=== PATIENT | female | born 1990 | race Caucasian/White ===

== ENCOUNTER → 2018-12-29 | Outpatient (CLI) | payer BC, SELFPAY ==
[2018-12-16 10:05] VITALS: BMI 26.9
[2018-12-29 18:22] LABS: Estradiol 34.1 pg/mL; Prolactin 12.9 ng/mL; Thyroid Stim Hormone (TSH) 1.28 uIU/mL (0.358-3.74)
== END | disposition home or self-care (01) ==
LOC: LAB 16:34
PROVIDERS: Referring Provider Nurse Practitioner Women's Health; Visit Provider Nurse Practitioner Women's Health
DX: N92.6 Irregular menstruation, unspecified (principal)
CPT/HCPCS: 36415; 82670; 83001; 84146; 84443

== ENCOUNTER → 2019-01-16 | Outpatient (CLI) | payer BC, SELFPAY ==
[2018-12-16 10:05] VITALS: BMI 26.9
[2019-01-17 08:57] LABS: Progesterone Level 9.25 ng/mL (See Comment)
== END | disposition home or self-care (01) ==
LOC: LAB 08:58
PROVIDERS: Visit Provider Nurse Practitioner Women's Health
DX: N92.6 Irregular menstruation, unspecified (principal)
CPT/HCPCS: 36415; 84144

== ENCOUNTER → 2019-03-03 10:08 | Outpatient (CLI) | payer BC, SELFPAY ==
[2018-12-16 10:05] VITALS: BMI 26.9
--- NOTE | 2019-03-03 10:15 | RAD_ITS ---
STUDY: HYSTEROSALPINGOGRAM. REASON FOR EXAM: Female, 28 years old. Infertility. FLUOROSCOPY TIME (if supplied): (0:27) minutes/seconds. 3 images were obtained. TECHNIQUE: Hysterosalpingogram was performed by the rear load truck driver. Imaging was provided. COMPARISON: None. FINDINGS: The uterus is unremarkable. Both fallopian tubes are patent with the spill bilaterally. RAD/Salpingogram IMPRESSION: Unremarkable hysterosalpingogram. Electronically Signed: Al Ortez, at 13:08 EDT , Service support ,
--- NOTE | 2019-03-04 04:57 | OP.PCM_ITS ---
Problem List (1) Infertility Status: Acute Report of Operation Date of Procedure: 03/04/19 Description of Procedure: Preop diagnosis: Infertility Postop diagnosis: Same plus bilateral tubal patency Procedure: Hysterosalpingogram Surgeon: La Moore Implantable devices: None Complications: None Findings: Bilateral tubal patency and normal uterine cavity Operative details: Patient was taken to the x-ray room and was placed on the x- ray table and was in the dorsal lithotomy position. Speculum was placed in the vagina and the cervix prepped with Betadine and after using a tenaculum and uterine sound and dilator, the uterus was noted to be shifted to the left, and the HSG catheter was then easily introduced into the uterus and speculum removed. Radiologist was brought in and while pushing radiopaque dye into the uterus via the HSG catheter the radiologist took multiple images and views and confirmed bilateral tubal patency seen. No gross uterine filling defects or abnormalities were seen. All instruments removed from the vagina and the uterus without complication. Patient tolerated the procedure well. Multi Select Codes - Urinary/Genital Urinary/Genital CPT Codes: Other Procedure See Report - [id number] [facility]
== END ==
PROVIDERS: Referring Provider Obstetrics & Gynecology; Visit Provider Obstetrics & Gynecology
DX: N97.9 Female infertility, unspecified (principal)
CPT/HCPCS: 58340; 74740; Q9967

== ENCOUNTER → 2019-08-17 16:27 | Outpatient (CLI) | payer BC, SELFPAY ==
[2018-12-16 10:05] VITALS: BMI 26.9
[2019-08-17 17:17] LABS: hCG Titer Quant., Serum 1395 mIU/mL (1-3)
== END ==
PROVIDERS: Referring Provider Obstetrics & Gynecology; Visit Provider Obstetrics & Gynecology
DX: O20.0 Threatened abortion (principal); Z3A.00 Weeks of gestation of pregnancy not specified
CPT/HCPCS: 36415; 84702

== ENCOUNTER → 2019-08-19 17:13 | Outpatient (CLI) | payer BC, SELFPAY ==
[2018-12-16 10:05] VITALS: BMI 26.9
[2019-08-19 18:55] LABS: hCG Titer Quant., Serum 2817 mIU/mL (1-3)
== END ==
PROVIDERS: Referring Provider Obstetrics & Gynecology; Visit Provider Obstetrics & Gynecology
DX: O20.0 Threatened abortion (principal)
CPT/HCPCS: 36415; 84702; 86850; 86900; 86901

== ENCOUNTER → 2019-08-30 | Outpatient (CLI) | payer BC, SELFPAY ==
[2018-12-16 10:05] VITALS: BMI 26.9
--- NOTE | 2019-08-30 16:21 | US_ITS ---
STUDY: FIRST TRIMESTER OBSTETRICAL ULTRASOUND REASON FOR EXAM: Female, 29 years old VIABILITY LMP: July 15, 2019. TECHNIQUE: Transvaginal TECHNICAL QUALITY: Adequate. PRIOR ULTRASOUND: None. FINDINGS: There is visualization of a single gestational sac in a normal intrauterine position. The mean sac diameter (MSD) measures 2.37 cm, indicating an estimated gestational age (EGA) of 7 weeks, 3 days. The gestational sac shape is within normal limits. There is a visualized yolk sac. The yolk sac measures 3.1 mm. The placenta is non-visualized. There is visualization of a live embryo. The crown-rump length (CRL) measures 7.6 cm, indicating an estimated gestational age (EGA) of 6 weeks, 5 days. There is demonstrated cardiac activity with a heart rate of bpm. The estimated gestation age (EGA) by LMP is 6 weeks, 4 days. The estimated date of delivery (RAIZA) by LMP is April 20, 2020. The estimated gestation age (EGA) by US is 7 weeks, 1 days. The estimated date of delivery (RAIZA) by US is April 16, 2020. The uterus measures 8.4 cm x 7.1 cm x 5.5 cm.. There is a 2.3 cm x 2 cm x 1.7 cm fundal fibroid. The cervix is closed. The right ovary measures 2.4 cm x 2.1 cm x 1.6 cm. There is no right ovarian cyst. There is no visualized right adnexal mass or complex lesion. The left ovary measures 3.4 cm x 2.9 cm x 2.4 cm.. There is a 1.7 cm x 1.7 cm x 1.4 cm follicle. There is no visualized left adnexal mass or complex lesion. There is no fluid in the cul de sac. US/Init OB < 14Wks US IMPRESSION: Single live intrauterine gestation with a mean gestational age of 7 weeks and 1 day. Electronically Signed: Al Ortez, at 16:25 EST , Service support ,
== END | disposition home or self-care (01) ==
PROVIDERS: Referring Provider Obstetrics & Gynecology; Visit Provider Obstetrics & Gynecology
DX: Z34.90 Encounter for supervision of normal pregnancy, unspecified, unspecified trimester (principal)
CPT/HCPCS: 76801

== ENCOUNTER → 2019-09-15 | Outpatient (CLI) | payer BC, SELFPAY ==
[2019-09-15 17:05] VITALS: BMI 26.9
[2019-09-15 18:21] LABS: Amphetamine Urine VISTA NEGATIVE (<1000 ng/mL); Barbiturate Urine VISTA NEGATIVE (< 200 ng/mL); Benzodiazepine Urine VISTA NEGATIVE (< 200 ng/mL); Cocaine Urine VISTA NEGATIVE (< 300 ng/mL); Ecstacy Urine VISTA NEGATIVE (< 500 ng/mL); Methadone Urine VISTA NEGATIVE (< 300 ng/mL); PCP Urine VISTA NEGATIVE (< 25 ng/mL); THC Urine VISTA NEGATIVE (< 50 ng/mL); Vista UDS pH Range 6
[2019-09-15 21:39] LABS: Chlamydia Trachomatis by PCR Negative (Negative); Neisserai gonorrhoeae by PCR Negative (Negative); Probe Check PASS; Sample Adequacy Control PASS; Specimen Processing Control PASS
== END | disposition home or self-care (01) ==
LOC: LABSPEC 17:26
PROVIDERS: Visit Provider Obstetrics & Gynecology
DX: Z34.90 Encounter for supervision of normal pregnancy, unspecified, unspecified trimester (principal)
CPT/HCPCS: 80307; 87086; 87088; 87491; 87591

== ENCOUNTER → 2019-09-27 | Outpatient (CLI) | payer BC, SELFPAY ==
[2019-09-15 17:05] VITALS: BMI 26.9
[2019-09-27 17:07] LABS: Absolute Lymphocyte Count 2.32 X10^3/uL (0.83-4.51); Absolute Neutrophil Count 5.6 X10^3/uL (2.0-7.7); Basophil# 0.03 X10^3/uL; Basophil% 0.3 % (0-1); Eosinophil# 0.22 X10^3/uL; Eosinophils% 2.4 % (0-5); Hematocrit 37.4 % (37-47); Lymphocyte # 2.32 X10^3/ul (4.0); Lymphocyte % 25.6 % (19-41); Mean Corp Hgb Conc 34.8 g/dL (32-36); Mean Corpuscular Hgb 30.6 pg (27.0-32.0); Mean Platelet Vol. 10.6 fl (6.2-12.0); Monocyte# 0.87 X10^3/uL; Monocyte% 9.6 % (0-10); NRBC Flagged by Analyzer 0 % (0-5); Neutrophil # 5.59 X10^3/uL (2.7-7.7); Neutrophil % 61.7 % (47-70); Platelet Count 229 K/mm3 (150-450); RBC Distribution Width CV 11.7 % (11.6-14.6); RBC Distribution Width SD 37.2 fl (35.1-43.9); Red Blood Count 4.25 M/mm3 (4.2-5.4); White Blood Count 9.1 K/mm3 (4.4-11.0)
[2019-09-28 11:25] LABS: HIV - WCH Non-Reactive (Nonreactive); Hepatitis B Surface Antigen Non-Reactive (Nonreactive); Hepatitis C Antibody Non-Reactive (Nonreactive); Rubella IgG > 500.0 IU/mL
[2019-09-29 00:26] LABS: Rapid Plasmin Reagin (RPR) NONREACTIVE (NONREACTIVE)
[2019-10-04 19:50] LABS: NATERA MAILED SPECIMEN
== END | disposition home or self-care (01) ==
LOC: PAVLAB 16:34
PROVIDERS: Obstetrics & Gynecology; Referring Provider Nurse Practitioner Women's Health; Visit Provider Nurse Practitioner Women's Health
DX: Z34.81 Encounter for supervision of other normal pregnancy, first trimester (principal)
CPT/HCPCS: 36415; 85025; 86592; 86703; 86762; 86803; 86850; 86900; 86901; 87340

== ENCOUNTER → 2020-01-23 | Outpatient (CLI) | payer BC, SELFPAY ==
[2020-01-03 15:56] VITALS: BMI 30.8
[2020-01-24 08:49] LABS: Glucose Challenge Gest 1H 50g 135 mg/dL (70-140)
== END | disposition home or self-care (01) ==
LOC: LAB 15:00
PROVIDERS: Visit Provider Obstetrics & Gynecology
DX: O99.810 Abnormal glucose complicating pregnancy (principal); Z3A.00 Weeks of gestation of pregnancy not specified
CPT/HCPCS: 36415; 82947; 82950

== ENCOUNTER → 2020-01-26 | Outpatient (CLI) | payer BC, SELFPAY ==
[2020-01-23 15:38] VITALS: BMI 30.8
[2020-01-26 10:30] LABS: Absolute Lymphocyte Count 1.55 X10^3/uL (0.83-4.51); Basophil# 0.02 X10^3/uL; Basophil% 0.2 % (0-1); Eosinophils% 2.1 % (0-5); Hematocrit 38.6 % (37-47); Hemoglobin 12.8 g/dL (12.0-15.0); Lymphocyte # 1.55 X10^3/ul (4.0); Lymphocyte % 16.2 % (19-41); Mean Corp Hgb Conc 33.2 g/dL (32-36); Mean Corpuscular Hgb 31.8 pg (27.0-32.0); Mean Platelet Vol. 11.3 fl (6.2-12.0); Monocyte# 0.76 X10^3/uL; NRBC Flagged by Analyzer 0 % (0-5); Neutrophil # 6.97 X10^3/uL (2.7-7.7); Platelet Count 203 K/mm3 (150-450); RBC Distribution Width CV 12.3 % (11.6-14.6); RBC Distribution Width SD 43.1 fl (35.1-43.9); Red Blood Count 4.02 M/mm3 (4.2-5.4); White Blood Count 9.6 K/mm3 (4.4-11.0)
[2020-01-26 12:01] LABS: Glucose GTT-Gestational 1 Hr 134 mg/dL (<190)
[2020-01-26 12:47] LABS: Glucose GTT-Gestational 2 Hr 158 mg/dL (<165)
[2020-01-26 13:33] LABS: Glucose GTT-Gestation. Fasting 87 mg/dL (<105)
[2020-01-26 13:43] LABS: Glucose GTT-Gestational 3 Hr 132 L (<145)
== END | disposition home or self-care (01) ==
LOC: LAB 09:53
PROVIDERS: Nurse Practitioner Women's Health; Referring Provider Obstetrics & Gynecology; Visit Provider Obstetrics & Gynecology
DX: O99.810 Abnormal glucose complicating pregnancy (principal); Z3A.00 Weeks of gestation of pregnancy not specified
CPT/HCPCS: 36415; 82951; 82952; 85025

== ENCOUNTER → 2020-03-22 | Outpatient (CLI) | payer BC, SELFPAY ==
[2020-03-22 16:02] VITALS: BMI 30.8
== END | disposition home or self-care (01) ==
LOC: LABSPEC 16:54
PROVIDERS: Referring Provider Obstetrics & Gynecology; Visit Provider Obstetrics & Gynecology
DX: Z34.90 Encounter for supervision of normal pregnancy, unspecified, unspecified trimester (principal)
CPT/HCPCS: 87081

== ENCOUNTER 2020-04-06 16:58 | Outpatient (CLI) | payer BC, SELFPAY ==
[2020-04-06 16:27] VITALS: BMI 30.8
[2020-04-06 17:08] VITALS: BP 119/80; PULSE 83
[2020-04-06 17:09] VITALS: TEMP 36.2
[2020-04-06 17:20] VITALS: BMI 36.9
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
== END 2020-04-06 17:30 | disposition home or self-care (01) ==
LOC: WPOUT 16:59 → OBT 16:59
PROVIDERS: Referring Provider Obstetrics & Gynecology; Visit Provider Obstetrics & Gynecology
DX: O36.8190 Decreased fetal movements, unspecified trimester, not applicable or unspecified (principal); Z3A.00 Weeks of gestation of pregnancy not specified
CPT/HCPCS: 59025; 59050; 99218; G0378

== ENCOUNTER → 2020-04-06 | Outpatient (CLI) | payer BC, SELFPAY ==
[2020-03-29 16:02] VITALS: BMI 30.8
[2020-04-06 17:17] LABS: Protein, Urine (Random) 15.1 mg/dL (<11.9); Protein:Creat Ratio 160 mg/g CRE (0-200)
[2020-04-06 17:20] VITALS: BMI 36.9
== END | disposition home or self-care (01) ==
LOC: MTDU 17:24
PROVIDERS: Referring Provider Obstetrics & Gynecology; Visit Provider Obstetrics & Gynecology
DX: R03.0 Elevated blood-pressure reading, without diagnosis of hypertension (principal); Z11.59 Encounter for screening for other viral diseases
CPT/HCPCS: 82570; 84156; 87635; C9803; U0003

== ENCOUNTER 2020-04-09 17:15 | Outpatient (CLI) | payer BC, SELFPAY ==
[2020-04-09 15:56] VITALS: BMI 36.9
--- NOTE | 2020-04-09 16:07 | US_ITS ---
STUDY: OBSTETRICAL ULTRASOUND - BIOPHYSICAL PROFILE REASON FOR EXAM: Female, 30 years old well-being. LMP: 07/11/2020 PRIOR ULTRASOUND: 04/09/2020 and 08/30/2019 TECHNIQUE: Transabdominal TECHNICAL QUALITY: Adequate. FINDINGS: There is a single intrauterine fetus. The fetus is in a cephalic presentation. There is demonstrated cardiac activity with a heart rate of 132 bpm. There is a normal amniotic fluid volume. The largest amniotic fluid pocket measures 6.2 cystic cm. The amniotic fluid index (SIOBHNA) is 13.6 cm. The placenta is anterior in location and is not low lying. There are Grade . 2 placental changes. Age by LMP: 38 weeks, 3 days. RAIZA by LMP: 04/20/2020. age by prior US: 39 weeks, 0 days. RAIZA by prior US: 04/16/2020. age by current US: 39 weeks, 4 days. RAIZA by current US: 04/12/2020. Gender: Indeterminant BIOPHYSICAL PROFILE: Breathing Movements (FBM): 0 Gross Body Movements (GBM): 2 Tone (FT): 2 Amniotic Fluid Volume (AFV): 2 TOTAL SCORE: 6 / 8 US/Biophysical Profile IMPRESSION: biophysical profile of 6/8. A preliminary report was sent to the ordering physician by the pipe tester at the completion of the exam. Electronically Signed: Angelo Ramon DO at 18:16 EDT Tel [phone], Service support ,
--- NOTE | 2020-04-09 16:07 | US_ITS ---
STUDY: SECOND AND THIRD TRIMESTER OBSTETRICAL ULTRASOUND REASON FOR EXAM: Female, 30 years old. Growth. LMP: 07/11/2019. TECHNIQUE: Transabdominal TECHNICAL QUALITY: Adequate. PRIOR ULTRASOUND: None. FINDINGS: There is a single intrauterine fetus. The fetus is in a cephalic presentation. There is demonstrated cardiac activity with a heart rate of 133 bpm. There is a normal amniotic fluid volume. The largest amniotic fluid pocket measures 6.26 cm. The amniotic fluid index (SIOBHAN) is 13.6 cm. The placenta is anterior in location and is not low lying. There are Grade 2 placental changes. The cervix is obscured BIOMETRY: BPD: 9.42 cm: 38 weeks, 2 days HC: 34.79 cm: 40 weeks, 2 days AC: 37 cm: 40 weeks, 6 days FL: 7.64 cm: 39 weeks, 0 days CI: 80.97 FL/BPD: 81.06 FL/HC: 21.96 FL/AC: 20.64 HC/AC: 0.94 age by current US: 39 weeks, 4 days. RAIZA by current US: 04/12/2020. Estimated weight: 4004 grams, +/- 601 grams, 84 %. Age by LMP: 39 weeks, 0 days. RAIZA by LMP: 04/16/2020. US/OB Limited With Biometrics IMPRESSION: 1. Live single intrauterine at 39 weeks, 4 days. RAIZA is 04/12/2020. 2. EFW 4004 g. 3. SIOBHAN of 13.6 cm. 4. Anterior grade 2 placenta. 5. Vertex presentation. Electronically Signed: Angelo Ramon DO at 17:33 EDT Tel [phone], Service support ,
[2020-04-09 17:21] VITALS: BP 115/66; PULSE 100; TEMP 36.1; O2SAT 97
[2020-04-09 17:24] VITALS: BP 115/66; PULSE 101
[2020-04-09 17:28] VITALS: BMI 37.0
--- NOTE | 2020-04-10 07:36 | OB.TRI.PN ---
Progress Notes Date of Service: 04/10/20 Progress Note: Patient presents for triage evaluation secondary to decreased movement and 6 out of 8 BPP FHT: 130 Moderate variability reactive no decelerations category I tracing [place]: No regular contractions Assessment and plan: Decreased movement abnormal BPP result now 8 out of 10 resolved reactive NST, reassuring maternal and status patient discharged to home to follow-up in the office Thursday. See problem list details for additional plan information. Multi Select Codes - Urinary/Genital Urinary/Genital CPT Codes: 94423-81 non-stress test Interp
== END 2020-04-09 17:55 | disposition home or self-care (01) ==
LOC: OBT 17:20 → US 17:21 → OBT 17:22
PROVIDERS: Referring Provider Obstetrics & Gynecology; Visit Provider Obstetrics & Gynecology
DX: O36.8190 Decreased fetal movements, unspecified trimester, not applicable or unspecified (principal); Z3A.00 Weeks of gestation of pregnancy not specified
CPT/HCPCS: 59025; 59050; 76816; 76818; 99218; G0378

== ENCOUNTER 2020-04-12 07:25 | Inpatient (IN) | payer BC, SELFPAY ==
[2020-04-12] VITALS (25 sets, daily range): BP systolic 95–130; BP diastolic 57–82; PULSE 68–97; TEMP 36.6–37; O2SAT 81–98; BMI 37.3
[2020-04-12 08:08] LABS: Absolute Lymphocyte Count 1.59 X10^3/uL (0.83-4.51); Absolute Neutrophil Count 6.4 X10^3/uL (2.0-7.7); Basophil# 0.03 X10^3/uL; Basophil% 0.3 % (0-1); Eosinophil# 0.16 X10^3/uL; Eosinophils% 1.8 % (0-5); Hematocrit 38.7 % (37-47); Hemoglobin 13.4 g/dL (12.0-15.0); Lymphocyte # 1.59 X10^3/ul (4.0); Lymphocyte % 17.7 % (19-41); Mean Corp Hgb Conc 34.6 g/dL (32-36); Mean Corpuscular Hgb 31.6 pg (27.0-32.0); Mean Corpuscular Volume 91.3 fL (81-99); Mean Platelet Vol. 11.6 fl (6.2-12.0); Monocyte# 0.78 X10^3/uL; Monocyte% 8.7 % (0-10); NRBC Flagged by Analyzer 0 % (0-5); Neutrophil # 6.37 X10^3/uL (2.7-7.7); Neutrophil % 71.1 % (47-70); Platelet Count 192 K/mm3 (150-450); RBC Distribution Width CV 12.4 % (11.6-14.6); RBC Distribution Width SD 41.1 fl (35.1-43.9); Red Blood Count 4.24 M/mm3 (4.2-5.4)
[2020-04-12] MEDS: miSOPROStol 25 MCG TABLET PO (09:04)
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
[2020-04-12] MEDS: Acetaminophen 325 MG Tablet PO (12:20)
[2020-04-12] MEDS: miSOPROStol 50 MCG TABLET PO ×2 (13:12→19:14)
[2020-04-12] MEDS: fentaNYL 100 MCG/2 ML Ampul IV (21:41)
[2020-04-12] MEDS: 0.9% Saline Lock 10 ML Syringe IV ×2 (21:42→23:08)
[2020-04-12] MEDS: Ondansetron 4 MG/2 ML Vial IV (23:08)
[2020-04-13] VITALS (41 sets, daily range): BP systolic 111–141; BP diastolic 58–76; PULSE 74–121; TEMP 36.3–37.2; O2SAT 92–99
[2020-04-13] MEDS: miSOPROStol 50 MCG TABLET PO ×2 (01:46→07:31)
[2020-04-13] MEDS: 0.9% Normal Saline Single 100 ML IV.SOLN. IY (06:33)
[2020-04-13] MEDS: 0.9% Saline Lock 10 ML Syringe IV (09:57)
[2020-04-13] MEDS: Ondansetron 4 MG/2 ML Vial IV (09:57)
[2020-04-13] MEDS: Lactated Ringers 1,000 ML 50 ML IV (20:15)
[2020-04-13] MEDS: Lactated Ringers 500 ML 999 ML IV (20:42)
[2020-04-13] MEDS: Mag Hydrox/Al Hydrox/Simeth 30 ML UDC PO (20:51)
[2020-04-13] MEDS: fentaNYL-bupivacaine (epidural) 100 ML BAG EPIDURAL (21:17)
[2020-04-13] MEDS: Oxytocin 30 units/NS 500 ml 30 UNITS/500 ML IV.SOLN IV (22:04)
[2020-04-14] VITALS (62 sets, daily range): BP systolic 85–113; BP diastolic 48–64; PULSE 57–101; TEMP 36.2–37.4; O2SAT 94–100
[2020-04-14] MEDS: Lactated Ringers 1,000 ML 200 ML IV ×4 (00:38→18:18)
[2020-04-14] MEDS: fentaNYL-bupivacaine (epidural) 100 ML BAG EPIDURAL ×5 (01:24→21:24)
[2020-04-14] MEDS: 0.9% Saline Lock 10 ML Syringe IV ×2 (01:59→19:27)
[2020-04-14] MEDS: Ondansetron 4 MG/2 ML Vial IV ×3 (01:59→18:46)
[2020-04-14] MEDS: Lactated Ringers 500 ML 999 ML IV ×3 (03:27→21:26)
[2020-04-14] MEDS: Acetaminophen 325 MG Tablet PO (11:26)
[2020-04-14] MEDS: Lactated Ringers 1,000 ML 125 ML IV (14:05)
[2020-04-14] MEDS: DiphenhydrAMINE 50 MG/ML Syringe 25 MG IV (14:44)
[2020-04-14] MEDS: Lactated Ringers 500 ML IV (17:46)
[2020-04-14] MEDS: proCHLORPERazine 10 MG/2 ML Vial IV (19:27)
[2020-04-14] MEDS: Amnioinfusion- 0.9% NS 1,000 ML IV.SOLN. 600 ML INTRA-UTER (20:42)
[2020-04-14] MEDS: Lactated Ringers 1,000 ML 100 ML IV (21:57)
[2020-04-15] VITALS (31 sets, daily range): BP systolic 99–116; BP diastolic 35–69; PULSE 61–113; RESP 16–18; TEMP 36.3–38.6; O2SAT 85–100
--- NOTE | 2020-04-15 02:38 | NURSING ---
Aggarwal placed for epidural was removed when kiwi was attempted. New aggarwal put in when maykel called.
[2020-04-15] MEDS: Cefazolin 2 GM in 0.9% Normal Saline 100 ML IV (02:40)
--- NOTE | 2020-04-15 03:25 | RAD_ITS ---
STUDY: X-RAY - ABDOMEN/PELVIS REASON FOR EXAM: Female, 30 years old. SPONGE COUNT POST TODAY AT 0330. TECHNIQUE: Single AP view of the abdomen / pelvis. COMPARISON: None. FINDINGS: Normal visualized lung bases. There is an unremarkable bowel gas pattern. There is no demonstrated free abdominal air. The visualized liver, spleen and kidneys are grossly normal in size and morphology. Normal soft tissue structures. Normal visualized osseous structures. RAD/Abdomen Single View (Portable) IMPRESSION: Normal x-ray examination of the abdomen and pelvis. Electronically Signed: Carolyn Shoemaker, at 4:07 EDT Tel , Service support ,
--- NOTE | 2020-04-15 03:54 | OP.PCM_ITS ---
Delivery Classification: Stat Final RAIZA: 04/16/20 Final RAIZA Source: US <20 weeks Gestational age: 39 Weeks and 6 Days Type of Anesthesia:: Spinal Special Medications: Ancef, Azithromycin Date of Procedure: 04/15/20 Pre-Operative Diagnosis: Induction of labor for chronic decreased movement, failed vacuum-assisted vaginal delivery, umbilical cord prolapse Post-Operative Diagnosis: Live female infant in OA presentation, asynclitism Indications: Failed vacuum-assisted vaginal delivery, umbilical cord prolapse Indications for : Prolapsed Cord, Failed vaccuum extraction Description of Procedure: Patient is a 28-year-old G1 at 39 weeks gestation who was admitted for induction of labor for chronic decreased movement. She was induced with Cytotec and Burnett will followed by Tomas after prolonged labor course, she made cervical change to complete dilation. She had been pushing for 4 hours with good maternal effort and became exhausted. The head was found to be a +2 station. The decision was made to proceed with a vacuum-assisted vaginal delivery. The risks, benefits, indications, and alternatives to a vacuum- assisted vaginal delivery were discussed with the patient including cephalohematoma, scalp lacerations, intracranial hemorrhage, and increased lacerations. It was also discussed with the patient that if the vacuum-assisted delivery was not successful, the next up would be to proceed with a . All questions were answered and the patient agreed to proceed. After pushing with good maternal effort for 4 hours, the decision was made to proceed with a vacuum assisted vaginal delivery. The risks, benefits, indications, and alternatives to the procedure were discussed with the patient and she voiced understanding. The head was felt to be in OA presentation initially. The vacuum was applied applied at the flexion point. At this time, contractions were noted to be spaced out significantly occurring every 6 to 7 minutes. The vacuum applied and suction was increased to the green zone. Suction never exceeded the green zone. On initial pull, the head was felt to move down in the pelvis. The vacuum-assisted delivery was attempted for a total of 4 contractions, however there were 3 pop offs due to inability to maintain suction. No rocking was performed. At this point the scalp was noted to be at +3 station. The patient strongly desired to attempt to push the infant out the remainder of the way. We attempted pushing for an additional 3 contractions, minimal descent was noted. On repeat examination, it was felt that significant It and swelling were developing on the top of the head and it was felt that there was significant It and molding that had begun to develop. The ear was noted anteriorly and was felt to be above the pubic bone. The decision was made to proceed with a primary section for failed vacuum-assisted vaginal delivery and arrest of descent. The head was gently disengaged from the pelvis. The head very easily elevated out of the pelvis and at this point the umbilical cord was noted protruding adjacent to the head. An OB emergency response team was called and the patient was transferred to the operating room for an emergency section. The risks, benefits, indications, and alternatives to the were discussed with the patient including bleeding, infection, and visceral or vascular injury. The patient voiced understanding and agreed to proceed. Patient was taken to the operating room where her epidural was dosed for spinal anesthesia. She was prepped and draped in the dorsal supine position with a leftward tilt. A Betadine splash was performed. Anesthesia level was checked and found to be adequate. The skin incision was made with a scalpel and carried down to the level of the fascia with the scalpel. The fascia was nicked in the midline and the fascial incision was extended bluntly with superior and inferior traction. The rectus muscles were in the midline and the peritoneum was entered bluntly. The peritoneal incision was extended using lateral traction. A bladder blade was placed. The lower uterine segment was identified and opened in a low transverse fashion using a scalpel. The incision was extended using superior and inferior traction the head was elevated out of the pelvis without difficulty, however on initial attempts at delivering the head through the rectus muscles the muscles were noted to be extremely tight. The decision was made to create additional space by transecting the left side of the rectus muscles transversely using bandage scissors. The head then delivered without difficulty followed by the remainder of the body. The cord was clamped and cut and the infant was handed off to the to the nursery nurse. The placenta delivered spontaneously with gentle traction and appeared intact. The uterus was then exteriorized. The hysterotomy was closed in a running locked fashion using #1 Monocryl suture. A second layer of #1 Monocryl suture was then performed in an imbricating fashion. Hemostasis was achieved with the Bovie. Significant bleeding was noted at the left lateral portion of the hysterotomy and significant bleeding was noted from the uterine vessels. An [place] stitch was performed using 0 Monocryl suture in a [id number] fashion. The hysterotomy was again inspected and appeared hemostatic. The uterus was then returned to the abdominal cavity. The gutters were cleared of all clots and debris. The hysterotomy was again inspected and hemostasis was noted. Indira was placed over the hysterotomy for hemostasis. The peritoneum was closed in a running fashion using 3-0 Monocryl suture. [id number] of 3-0 Monocryl were used to reapproximate the transected portion of the rectus muscles. The rectus muscles were inspected and good hemostasis was noted. The fascia was then closed in a running fashion using oh strata fix suture. The subcutaneous space was copiously irrigated and hemostasis was achieved with the Bovie. The subcutaneous space was closed in a running fashion using 3-0 Monocryl suture. Then was closed in a running subcuticular fashion using 4-0 Monocryl suture. The events of the delivery were discussed with the patient and her . The patient was taken to the recovery room in stable condition. Amniotic Membrane Rupture Type: Artificial Amniotic Fluid Description: Clear Placenta Disposition: [facility] Cord Vessel Description: 3 Vessels Esitmated Blood Loss (ml): 800 Infant Gender: Female (1 minute): 6 (5 minute): 8 Delayed cord clamping: No Antibiotic Given: Ancef 2 grams IV x1, Zithromax 500 mg/5 mL X1 Pt instructed on risks of surgery: Bleeding, Anesthesia Risks, Infection, Need for Future C-Sections, Injury to surrounding structure(s) including bowel and bladder Complications: None - Admit VTE Documentation VTE Present on Admission: No Vaginal Delivery Rupture of Membrane time: 0530 Final RAIZA: 04/16/20 Gestational age: 39 Weeks and 6 Days Date of Procedure: 04/15/20 Anesthesiologist: Christina Alexander Select Codes - Urinary/Genital Urinary/Genital CPT Codes: 97323 Delivery global pkg - failed vacuum a ssisted delivery
[2020-04-15] MEDS: Oxytocin 30 units/NS 500 ml 30 UNITS/500 ML IV.SOLN 167 UNITS IV (04:25)
[2020-04-15 05:12] LABS: Absolute Lymphocyte Count 0.58 X10^3/uL (0.83-4.51); Absolute Neutrophil Count 14.3 X10^3/uL (2.0-7.7); Basophil# 0.03 X10^3/uL; Basophil% 0.2 % (0-1); Eosinophil# 0.01 X10^3/uL; Eosinophils% 0.1 % (0-5); Hemoglobin 10.5 g/dL (12.0-15.0); Lymphocyte # 0.58 X10^3/ul (4.0); Lymphocyte % 3.6 % (19-41); Mean Corp Hgb Conc 33.9 g/dL (32-36); Mean Corpuscular Hgb 31.3 pg (27.0-32.0); Mean Corpuscular Volume 92.3 fL (81-99); Mean Platelet Vol. 12.2 fl (6.2-12.0); Monocyte% 6.8 % (0-10); NRBC Flagged by Analyzer 0 % (0-5); Neutrophil % 88.9 % (47-70); POSITIVE DIFFERENTIAL YES; Platelet Count 180 K/mm3 (150-450); RBC Distribution Width CV 12.6 % (11.6-14.6); RBC Distribution Width SD 42.4 fl (35.1-43.9); Red Blood Count 3.36 M/mm3 (4.2-5.4); White Blood Count 16.1 K/mm3 (4.4-11.0)
[2020-04-15 05:22] LABS: Differential Indicated SCAN CRITERIA MET
[2020-04-15] MEDS: Methylergonovine 0.2 MG/ML Ampul IM (05:22)
[2020-04-15 05:28] LABS: Creatinine, Serum 1.21 mg/dL (0.55-1.02); EST Glomerular Filtration Rate 56 mL/min (>60); Est Glom Filt Rate - Afr Amer 68 mL/min (>60); Estimated Creatinine Clearance 57.26 ml/min
[2020-04-15] MEDS: Acetaminophen 500 MG Tablet 1000 MG PO ×3 (06:31→17:38)
[2020-04-15] MEDS: Lactated Ringers 1,000 ML 100 ML IV (07:31)
[2020-04-15] MEDS: Ketorolac 30 MG/ML Syringe IV ×3 (09:25→21:10)
[2020-04-15] MEDS: Enoxaparin 40 MG/0.4 ML Syringe SC (15:57)
[2020-04-15] MEDS: 0.9% Saline Lock 10 ML Syringe IV ×2 (21:10→22:16)
[2020-04-16] VITALS (14 sets, daily range): BP systolic 97–122; BP diastolic 61–76; PULSE 80–128; RESP 16–18; TEMP 36.6–38.4; O2SAT 94–98
[2020-04-16] MEDS: Acetaminophen 500 MG Tablet 1000 MG PO ×4 (00:15→19:44)
--- NOTE | 2020-04-16 02:52 | RAD_ITS ---
STUDY: X-RAY CHEST REASON FOR EXAM: Female, 30 years old. Tachycardia, yesterday. TECHNIQUE: Single AP portable view of the chest. COMPARISON: None. FINDINGS: The lungs are clear and expanded. Small bilateral pleural effusions are noted. Normal size heart. Normal mediastinum and kaila. Normal visualized pulmonary arteries. Normal visualized aortic arch and descending thoracic aorta. Normal visualized thoracic spine. Normal visualized ribs, clavicles, and shoulders. There is a small amount of free air in the abdomen most likely related to recent surgery. RAD/Chest PA and Lateral IMPRESSION: Small bilateral pleural effusions. There is a small amount of free air in the abdomen most likely related to recent surgery. Electronically Signed: Carolyn Shoemaker, at 4:57 EDT Tel , Service support ,
[2020-04-16 03:06] LABS: Absolute Lymphocyte Count 0.61 X10^3/uL (0.83-4.51); Absolute Neutrophil Count 11.8 X10^3/uL (2.0-7.7); Basophil# 0.02 X10^3/uL; Basophil% 0.1 % (0-1); Eosinophils% 0.7 % (0-5); Hematocrit 28.2 % (37-47); Hemoglobin 9.6 g/dL (12.0-15.0); Lymphocyte # 0.61 X10^3/ul (4.0); Lymphocyte % 4.5 % (19-41); Mean Corpuscular Hgb 32.1 pg (27.0-32.0); Mean Corpuscular Volume 94.3 fL (81-99); Mean Platelet Vol. 11.9 fl (6.2-12.0); Monocyte# 0.83 X10^3/uL; Monocyte% 6.2 % (0-10); NRBC Flagged by Analyzer 0 % (0-5); Neutrophil # 11.81 X10^3/uL (2.7-7.7); Neutrophil % 87.9 % (47-70); Platelet Count 145 K/mm3 (150-450); RBC Distribution Width CV 12.6 % (11.6-14.6); Red Blood Count 2.99 M/mm3 (4.2-5.4); White Blood Count 13.5 K/mm3 (4.4-11.0)
[2020-04-16 03:19] LABS: ALB/GLOB Ratio 0.5 RATIO (0.9-2.4); AST(SGOT) 74 U/L (15-37); Alanine Aminotransfer ALT/SGPT 30 U/L (13-56); Albumin, Serum 1.8 g/dL (3.2-5.0); Alkaline Phosphatase 94 U/L (45-117); Anion Gap 7 (5-15); BUN 14 mg/dL (7-18); BUN/Creat Ratio 17.4 RATIO (10-20); Calcium,Total 8.3 mg/dL (8.5-10.1); Chloride 107 mmol/L (98-107); EST Glomerular Filtration Rate 90 mL/min (>60); Est Glom Filt Rate - Afr Amer 109 mL/min (>60); Estimated Creatinine Clearance 86.61 ml/min; Globulin 3.3 g/dL (2.2-4.2); Glucose 87 mg/dL (74-106); Potassium 3.5 mmol/L (3.5-5.1); Protein, Total 5.1 g/dL (6.4-8.2); Sodium Level 142 mmol/L (136-145)
--- NOTE | 2020-04-16 03:34 | CT_ITS ---
STUDY: CTA CHEST REASON FOR EXAM: Female, 30 years old. TACHYCARDIA/FEVER. Patient had 04/15/20. RADIATION DOSAGE (If Supplied By Facility): CTDIvol = ( 13.07 ) mGy, DLP = ( 439.97 ) mGycm TECHNIQUE: The examination was performed with the intravenous administration of IV 100mL Isovue-370. Post-processing of the angiographic images was performed, with multiplanar reformation and 3D reconstruction. Individualized dose optimization techniques were used for this CT. COMPARISON: None. FINDINGS: Normal enhancement of the main pulmonary artery and right and left pulmonary arteries. Normal enhancement of the bilateral peripheral pulmonary arteries. There is no demonstrated pulmonary embolism. Normal thoracic aorta and visualized great vessels. There is no demonstrated aortic dissection. Normal heart and pericardium. Normal mediastinum. Normal hilar regions. Normal visualized trachea and bronchi. The lungs are well expanded. Normal pulmonary parenchyma. Small bilateral pleural effusions. Normal chest wall structures. Normal osseous structures. There is small amount of free air in the abdomen most likely due to recent surgery. CT/CTA Chest W/WO Contrast IMPRESSION: No demonstrated pulmonary embolism or arterial dissection. Small bilateral effusions. Electronically Signed: Carolyn Shoemaker, at 4:40 EDT Tel , Service support ,
[2020-04-16] MEDS: Ketorolac 30 MG/ML Syringe IV (03:51)
[2020-04-16] MEDS: 0.9% Saline Lock 10 ML Syringe IV (03:51)
--- NOTE | 2020-04-16 06:41 | EKGRS_ITS ---
Test Reason : Blood Pressure : / mmHG Vent. Rate : 117 BPM Atrial Rate : 117 BPM P-R Int : 164 ms QRS Dur : 078 ms QT Int : 328 ms P-R-T Axes : 042 031 022 degrees QTc Int : 457 ms Sinus tachycardia Otherwise normal ECG Confirmed by MARCELINA AVALOS, ZAIDA ([id number]), map editor JENNY GARBER ([id number]) on 04/19/2020 2:06:45 PM Referred By: Denisha Serra Confirmed By:ZAIDA HEWITT MD
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
[2020-04-16] MEDS: Furosemide 20 MG/2 ML VIAL IV (08:24)
[2020-04-16] MEDS: Senna/Docusate Sodium 1 Tablet PO (09:51)
[2020-04-16] MEDS: Naproxen 250 MG Tablet 500 MG PO ×2 (09:51→17:15)
[2020-04-16] MEDS: Enoxaparin 40 MG/0.4 ML Syringe SC (13:29)
--- NOTE | 2020-04-16 21:37 | NURSING ---
Dr. Serra called and notified IV site is leaking and needs to be replaced. Dr. Serar okay with morning labs being drawn around 0100 with new IV start.
[2020-04-17 00:08] VITALS: BP 105/69; PULSE 91; RESP 16; TEMP 36.8; O2SAT 93
[2020-04-17] MEDS: 0.9% Saline Lock 10 ML Syringe IV (00:55)
[2020-04-17] MEDS: Acetaminophen 500 MG Tablet 1000 MG PO ×2 (00:55→06:37)
[2020-04-17] MEDS: Naproxen 250 MG Tablet 500 MG PO ×2 (00:56→09:37)
[2020-04-17 00:57] LABS: Absolute Lymphocyte Count 1.14 X10^3/uL (0.83-4.51); Absolute Neutrophil Count 9.3 X10^3/uL (2.0-7.7); Basophil# 0.03 X10^3/uL; Basophil% 0.3 % (0-1); Eosinophil# 0.24 X10^3/uL; Eosinophils% 2.1 % (0-5); Lymphocyte # 1.14 X10^3/ul (4.0); Lymphocyte % 9.9 % (19-41); Mean Corp Hgb Conc 34.6 g/dL (32-36); Mean Corpuscular Hgb 32.3 pg (27.0-32.0); Mean Corpuscular Volume 93.2 fL (81-99); Mean Platelet Vol. 11.6 fl (6.2-12.0); Monocyte# 0.67 X10^3/uL; Monocyte% 5.8 % (0-10); NRBC Flagged by Analyzer 0 % (0-5); Neutrophil # 9.33 X10^3/uL (2.7-7.7); Neutrophil % 81.4 % (47-70); Platelet Count 184 K/mm3 (150-450); RBC Distribution Width CV 12.7 % (11.6-14.6); RBC Distribution Width SD 43.4 fl (35.1-43.9); Red Blood Count 2.79 M/mm3 (4.2-5.4); White Blood Count 11.5 K/mm3 (4.4-11.0)
[2020-04-17 01:32] LABS: ALB/GLOB Ratio 0.5 RATIO (0.9-2.4); AST(SGOT) 109 U/L (15-37); Alanine Aminotransfer ALT/SGPT 60 U/L (13-56); Alkaline Phosphatase 245 U/L (45-117); Anion Gap 8 (5-15); BUN 12 mg/dL (7-18); BUN/Creat Ratio 15.9 RATIO (10-20); Calcium,Total 8.6 mg/dL (8.5-10.1); Chloride 109 mmol/L (98-107); Creatinine, Serum 0.76 mg/dL (0.55-1.02); EST Glomerular Filtration Rate 97 mL/min (>60); Est Glom Filt Rate - Afr Amer 117 mL/min (>60); Estimated Creatinine Clearance 91.16 ml/min; Globulin 3.7 g/dL (2.2-4.2); Glucose 73 mg/dL (74-106); Potassium 3.9 mmol/L (3.5-5.1); Protein, Total 5.7 g/dL (6.4-8.2); Sodium Level 142 mmol/L (136-145)
[2020-04-17 05:10] VITALS: BP 116/76; PULSE 82; RESP 16; TEMP 36.2; O2SAT 97
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
--- NOTE | 2020-04-17 08:03 | DCINST_ITS ---
Additional Instructions: If you experience any of the following, contact your healthcare provider. * Bleeding that soaks a pad every hour for 2 hours * Fever 100.4 or higher * Unrelieved incision or abdominal pain * Swelling, redness, discharge or bleeding from your incision or episiotomy site * Your incision begins to separate * Problems urinating (including inability to urinate or burning while urinating). * Visual changes * Severe headache * Flu-like symptoms * Pain or redness in one of both of your breasts * Pain, warmth, tenderness or swelling in your legs, especially the calf area * Frequent nausea and vomiting * Symptoms of depression or anxiety If you experience any of the following, call 911 or go to the nearest Emergency Room. * Chest pain * Problems breathing * Seizure activity * Partial or complete paralysis of a body part, slurred speech, weakness or drooping of the face, or a sudden inability to walk or hold your balance Allergies/Adverse Reactions: Allergies acetaminophen [From Percocet] Allergy (Mild, Verified 04/12/20 06:54) vomiting, itching oxycodone [From Percocet] Allergy (Mild, Verified 04/12/20 06:54) vomiting, itching Medications to take at Discharge multivitamin no.47-iron fum 27 mg-folate no.1 1 mg-dha 300 mg capsule 1 cap PO DAILY 09/15/19 famotidine 40 mg tablet 40 mg PO DAILY 03/07/20 Loratadine [Claritin] 10 mg PO DAILY 04/09/20 Butalbit/Acetamin/Caff/Codeine [Akwliu-Pezodkvxwbs-Fwko-Codein] 1 cap PO Q4H PRN 04/12/20 Calcium Carbonate [Tums Ultra] 400 mg PO PRN PRN 04/12/20 DiphenhydrAMINE [Benadryl] 25 mg PO QHS PRN PRN 04/12/20 Naproxen [Naprosyn] 500 mg PO BID PRN PRN #60 tab 04/17/20 Oxycodone [Oxyir] 5 mg PO Q4H PRN PRN #15 tab 04/17/20 The following prescriptions were given: Naproxen [Naprosyn] 500 mg PO BID PRN PRN #60 tab PRN Reason: Pain Transmission Status: Received by [facility] Oxycodone [Oxyir] 5 mg PO Q4H PRN PRN #15 tab PRN Reason: pain Transmission Status: Pending to [facility] [id number] Follow-Up: Call to make an appointment with your doctor for an incision check in 1-2 weeks. You will also need a 6 week post- follow up appointment. Test results from this visit will be discussed in further detail at your follow- up appointment, if applicable. Primary Care Physician: Care Physician,No Primary [Primary Care Provider] -
--- NOTE | 2020-04-17 08:03 | PCM.DCCSEC ---
Additional Instructions: If you experience any of the following, contact your healthcare provider. Bleeding that soaks a pad every hour for 2 hours Fever 100.4 or higher Unrelieved incision or abdominal pain Swelling, redness, discharge or bleeding from your incision or episiotomy site Your incision begins to separate Problems urinating (including inability to urinate or burning while urinating). Visual changes Severe headache Flu-like symptoms Pain or redness in one of both of your breasts Pain, warmth, tenderness or swelling in your legs, especially the calf area Frequent nausea and vomiting Symptoms of depression or anxiety If you experience any of the following, call 911 or go to the nearest Emergency Room. Chest pain Problems breathing Seizure activity Partial or complete paralysis of a body part, slurred speech, weakness or drooping of the face, or a sudden inability to walk or hold your balance Allergies/Adverse Reactions: Allergies acetaminophen [From Percocet] Allergy (Mild, Verified 04/12/20 06:54) vomiting, itching oxycodone [From Percocet] Allergy (Mild, Verified 04/12/20 06:54) vomiting, itching Medications to take at Discharge multivitamin no.47-iron fum 27 mg-folate no.1 1 mg-dha 300 mg capsule 1 cap PO DAILY 09/15/19 famotidine 40 mg tablet 40 mg PO DAILY 03/07/20 Loratadine [Claritin] 10 mg PO DAILY 04/09/20 Butalbit/Acetamin/Caff/Codeine [Ltybnk-Lytqpjnzvex-Ycgk-Codein] 1 cap PO Q4H PRN 04/12/20 Calcium Carbonate [Tums Ultra] 400 mg PO PRN PRN 04/12/20 DiphenhydrAMINE [Benadryl] 25 mg PO QHS PRN PRN 04/12/20 Naproxen [Naprosyn] 500 mg PO BID PRN PRN #60 tab 04/17/20 Oxycodone [Oxyir] 5 mg PO Q4H PRN PRN #15 tab 04/17/20 The following prescriptions were given: Naproxen [Naprosyn] 500 mg PO BID PRN PRN #60 tab PRN Reason: Pain Transmission Status: Received by [facility] Oxycodone [Oxyir] 5 mg PO Q4H PRN PRN #15 tab PRN Reason: pain Transmission Status: Pending to [id number] Follow-Up: Call to make an appointment with your doctor for an incision check in 1-2 weeks. You will also need a 6 week post- follow up appointment. Test results from this visit will be discussed in further detail at your follow-up appointment, if applicable. Primary Care Physician: Care Physician,No Primary [Primary Care Provider] -
[2020-04-17 08:04] VITALS: BP 115/74; PULSE 86; RESP 16; TEMP 36.8
[2020-04-17] MEDS: Senna/Docusate Sodium 1 Tablet PO (09:38)
== END 2020-04-17 11:45 | disposition home or self-care (01) | DRG 787 ==
LOC: WPOUT 07:34 → WP 07:34
PROVIDERS: Obstetrics & Gynecology; Admitting Provider Obstetrics & Gynecology; Referring Provider Obstetrics & Gynecology; Visit Provider Obstetrics & Gynecology
DX: O66.5 Attempted application of vacuum extractor and forceps (principal); O86.12 Endometritis following delivery; J90 Pleural effusion, not elsewhere classified; O32.4XX0 Maternal care for high head at term, not applicable or unspecified; O36.8130 Decreased fetal movements, third trimester, not applicable or unspecified; O69.0XX0 Labor and delivery complicated by prolapse of cord, not applicable or unspecified; Z3A.39 39 weeks gestation of pregnancy; Z37.0 Single live birth; O90.89 Other complications of the puerperium, not elsewhere classified
CPT/HCPCS: 59025; 59050; 71046; 71275; 74018; 80053; 82565; 85025; 86850; 86900; 86901; 93005; 99218; J7030; J7120; Q9967; A4216; G0378; J1940; J2405

== ENCOUNTER → 2020-05-28 | Outpatient (CLI) | payer BC, SELFPAY ==
[2020-05-28 13:40] VITALS: BMI 30.1
[2020-06-04 16:48] LABS: HPV Reflexed? NOT INDICATED
== END | disposition home or self-care (01) ==
LOC: LABSPEC 16:21
PROVIDERS: Referring Provider Nurse Practitioner Women's Health; Visit Provider Nurse Practitioner Women's Health
DX: Z12.4 Encounter for screening for malignant neoplasm of cervix (principal)
CPT/HCPCS: 88175; G0145

== ENCOUNTER → 2021-01-29 18:15 | Outpatient (CLI) | payer BC, SELFPAY ==
[2020-05-28 13:40] VITALS: BMI 30.1
[2021-01-29 19:34] LABS: hCG Titer Quant., Serum 523 mIU/mL (1-3)
== END ==
PROVIDERS: Visit Provider Nurse Practitioner Women's Health
DX: N91.2 Amenorrhea, unspecified (principal)
CPT/HCPCS: 36415; 84702

== ENCOUNTER → 2021-01-31 19:00 | Outpatient (CLI) | payer BC, SELFPAY ==
[2020-05-28 13:40] VITALS: BMI 30.1
[2021-01-31 20:32] LABS: hCG Titer Quant., Serum 1092 mIU/mL (1-3)
== END ==
PROVIDERS: Visit Provider Nurse Practitioner Women's Health
DX: Z34.90 Encounter for supervision of normal pregnancy, unspecified, unspecified trimester (principal)
CPT/HCPCS: 36415; 84702

== ENCOUNTER → 2021-02-25 08:02 | Outpatient (CLI) | payer BC, SELFPAY ==
[2020-05-28 13:40] VITALS: BMI 30.1
--- NOTE | 2021-02-25 08:04 | US_ITS ---
INDICATION: unknown LMP EXAMINATION: Ultrasound US OB Greater Than 14 Weeks TECHNIQUE: Transabdominal pelvic ultrasound was performed. COMPARISON: No relevant comparisons are available. LMP: Unknown. FINDINGS: INTRAUTERINE GESTATION(s): Single. ESTIMATED GESTATIONAL AGE: 8 weeks 2 days ESTIMATED DUE DATE (RAIZA): 10/05/2021 2 small subchorionic hematomas are identified, one measuring 1.9 x 1.6 x 0.6 cm in size and the second one measuring 1.1 x 2.1 x 0.9 cm in size. HEART MOTION is 174 bpm. CERVIX: The cervix is closed. MATERNAL OVARIES: The right ovary is visualized and measures 3.2 x 3.2 x 2.9 cm in size and is normal and the left ovary is also normal measuring 3.0 x 2.8 x 1.9 cm in size. FREE FLUID: None. US/OB Limited With Biometrics IMPRESSION: Single live intrauterine is identified with a gestational age of 8 weeks 2 days by ultrasound. Electronically Signed: Pj Kearney DO at 10:59 EDT Tel , Service support ,
== END ==
PROVIDERS: Referring Provider Nurse Practitioner Women's Health; Visit Provider Nurse Practitioner Women's Health
DX: Z34.91 Encounter for supervision of normal pregnancy, unspecified, first trimester (principal)
CPT/HCPCS: 76816

== ENCOUNTER → 2021-03-06 | Outpatient (CLI) | payer BC, SELFPAY ==
[2021-03-06 09:28] VITALS: BMI 30.7
[2021-03-06 11:38] LABS: Amphetamine Urine VISTA NEGATIVE (<1000 ng/mL); Barbiturate Urine VISTA NEGATIVE (< 200 ng/mL); Benzodiazepine Urine VISTA NEGATIVE (< 200 ng/mL); Cocaine Urine VISTA NEGATIVE (< 300 ng/mL); Ecstacy Urine VISTA NEGATIVE (< 500 ng/mL); Methadone Urine VISTA NEGATIVE (< 300 ng/mL); PCP Urine VISTA NEGATIVE (< 25 ng/mL); THC Urine VISTA NEGATIVE (< 50 ng/mL); Vista UDS pH Range 5
[2021-03-07 20:08] LABS: Chlamydia By Nucleic Acid AMP Negative (Negative)
[2021-03-07 20:18] LABS: Gonococcus By Nucleic Acid AMP Negative (Negative)
== END | disposition home or self-care (01) ==
PROVIDERS: Referring Provider Obstetrics & Gynecology; Visit Provider Obstetrics & Gynecology
DX: Z34.80 Encounter for supervision of other normal pregnancy, unspecified trimester (principal)
CPT/HCPCS: 80307; 87086; 87088; 87491; 87591

== ENCOUNTER → 2021-04-08 09:22 | Outpatient (CLI) | payer BC, SELFPAY ==
[2021-04-08 10:13] LABS: Absolute Neutrophil Count 5.3 X10^3/uL (2.0-7.7); Basophil# 0.02 X10^3/uL; Basophil% 0.3 % (0-1); Eosinophil# 0.22 X10^3/uL; Eosinophils% 2.8 % (0-5); Hematocrit 36.8 % (37-47); Hemoglobin 12.6 g/dL (12.0-15.0); Lymphocyte % 20.6 % (19-41); Mean Corp Hgb Conc 34.2 g/dL (32-36); Mean Corpuscular Hgb 31.4 pg (27.0-32.0); Mean Corpuscular Volume 91.8 fL (81-99); Mean Platelet Vol. 11.3 fl (6.2-12.0); Monocyte# 0.55 X10^3/uL; Monocyte% 7.1 % (0-10); NRBC Flagged by Analyzer 0 % (0-5); Neutrophil # 5.32 X10^3/uL (2.7-7.7); Neutrophil % 68.7 % (47-70); Platelet Count 213 K/mm3 (150-450); RBC Distribution Width CV 11.8 % (11.6-14.6); RBC Distribution Width SD 39.4 fl (35.1-43.9); Red Blood Count 4.01 M/mm3 (4.2-5.4); White Blood Count 7.8 K/mm3 (4.4-11.0)
[2021-04-08 10:33] LABS: NATERA MAILED SPECIMEN
[2021-04-08 11:21] LABS: HIV - WCH Non-Reactive (Nonreactive); Hepatitis B Surface Antigen Non-Reactive (Nonreactive); Hepatitis C Antibody Non-Reactive (Nonreactive); Rubella IgG Reactive (Nonreactive); Syphilis Antibodies Non-reactive
== END ==
PROVIDERS: Referring Provider Obstetrics & Gynecology; Visit Provider Obstetrics & Gynecology
DX: Z34.81 Encounter for supervision of other normal pregnancy, first trimester (principal)
CPT/HCPCS: 36415; 85025; 86703; 86762; 86780; 86803; 86850; 86900; 86901; 87340

== ENCOUNTER 2021-06-19 16:15 | Outpatient (CLI) | payer BC, SELFPAY ==
[2021-06-19 16:21] VITALS: BMI 34.2
[2021-06-19 16:23] VITALS: BP 123/76; PULSE 107; TEMP 36.7
--- NOTE | 2021-06-19 16:32 | US_ITS ---
STUDY: SECOND AND THIRD TRIMESTER OBSTETRICAL ULTRASOUND - LIMITED REASON FOR EXAM: Female, 31 years old. Position. Placenta and cervix. LMP: Unknown. PRIOR ULTRASOUND: 02/25/2021. TECHNIQUE: Transabdominal and Transvaginal TECHNICAL QUALITY: Adequate. FINDINGS: There is a single intrauterine fetus. The fetus is in a cephalic presentation. There is demonstrated cardiac activity with a heart rate of 140 bpm. There is a normal amniotic fluid volume. The largest amniotic fluid pocket measures 4.43 cm. The placenta is posterior with a marginal previa. The placenta comes within 1.4 cm all the internal os. There are Grade 0 placental changes. The cervix measures 4.39 cm in length. BIOMETRY: BPD: 6.25 cm: 25 weeks, 2 days HC: 24.08 cm: 26 weeks, 1 days AC: 22.51 cm: 26 weeks, 6 days FL: 4.59 cm: 25 weeks, 1 days age by prior US: 24 weeks, 4 days. RAIZA by prior US: 10/05/2021. age by current US: 25 weeks, 5 days. RAIZA by current US: 09/27/2021. Estimated weight: 901 grams, +/- 135 grams, 96 percentile. Gender: Indeterminant IMPRESSION: 1. Live single intrauterine at 25 weeks, 5 days. RAIZA is 09/27/2021. This is approximately one week ahead of expected gestational age by prior ultrasound. 2. EFW 901 g. 3. Adequate amniotic fluid. 4. Posterior marginal previa grade 0 placenta. 5. The cervix measures 4.39 cm in length and is closed. 6. VERTEX presentation. Electronically Signed: Angelo Ramon DO at 18:59 EST Tel [phone], Service support , STUDY: SECOND AND THIRD TRIMESTER OBSTETRICAL ULTRASOUND - LIMITED REASON FOR EXAM: Female, 31 years old. Position. Placenta and cervix. LMP: Unknown. PRIOR ULTRASOUND: 02/25/2021. TECHNIQUE: Transabdominal and Transvaginal TECHNICAL QUALITY: Adequate. FINDINGS: There is a single intrauterine fetus. The fetus is in a cephalic presentation. There is demonstrated cardiac activity with a heart rate of 140 bpm. There is a normal amniotic fluid volume. The largest amniotic fluid pocket measures 4.43 cm. The placenta is posterior with a marginal previa. The placenta comes within 1.4 cm all the internal os. There are Grade 0 placental changes. The cervix measures 4.39 cm in length. BIOMETRY: BPD: 6.25 cm: 25 weeks, 2 days HC: 24.08 cm: 26 weeks, 1 days AC: 22.51 cm: 26 weeks, 6 days FL: 4.59 cm: 25 weeks, 1 days age by prior US: 24 weeks, 4 days. RAIZA by prior US: 10/05/2021. age by current US: 25 weeks, 5 days. RAIZA by current US: 09/27/2021. Estimated weight: 901 grams, +/- 135 grams, 96 percentile. Gender: Indeterminant US/OB Limited With Biometrics IMPRESSION: 1. Live single intrauterine at 25 weeks, 5 days. RAIZA is 09/27/2021. This is approximately one week ahead of expected gestational age by prior ultrasound. 2. EFW 901 g. 3. Adequate amniotic fluid. 4. Posterior marginal previa grade 0 placenta. 5. The cervix measures 4.39 cm in length and is closed. 6. VERTEX presentation. Electronically Signed: Angelo Ramon DO at 18:59 EST Tel [phone], Service support ,
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
[2021-06-19] MEDS: Betamethasone/Betamethasone 30 MG/5 ML Vial 12 MG IM (16:40)
== END 2021-06-19 19:37 | disposition home or self-care (01) ==
LOC: WPOUT 16:19 → WP 16:20
PROVIDERS: Visit Provider Obstetrics & Gynecology
DX: O44.32 Partial placenta previa with hemorrhage, second trimester (principal); Z3A.22 22 weeks gestation of pregnancy
CPT/HCPCS: 59025; 59050; 76816; 76817; 96372; 99218; G0378; J0702

== ENCOUNTER 2021-06-20 16:30 | Outpatient (CLI) | payer BC, SELFPAY ==
[2021-06-20 16:48] VITALS: BMI 34.3
[2021-06-20] MEDS: Betamethasone/Betamethasone 30 MG/5 ML Vial 12 MG IM (16:52)
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
== END 2021-06-20 16:55 | disposition home or self-care (01) ==
LOC: WPOUT 16:36 → WP 16:37
PROVIDERS: Visit Provider Obstetrics & Gynecology
DX: O44.32 Partial placenta previa with hemorrhage, second trimester (principal); Z3A.22 22 weeks gestation of pregnancy
CPT/HCPCS: 96372; 99218; G0378; J0702

== ENCOUNTER → 2021-07-03 15:15 | Outpatient (CLI) | payer BC, SELFPAY ==
[2021-07-03 15:33] LABS: Absolute Lymphocyte Count 1.78 X10^3/uL (0.83-4.51); Absolute Neutrophil Count 6.3 X10^3/uL (2.0-7.7); Basophil# 0.03 X10^3/uL; Basophil% 0.3 % (0-1); Eosinophil# 0.19 X10^3/uL; Eosinophils% 2.1 % (0-5); Hematocrit 37.2 % (37-47); Hemoglobin 12.6 g/dL (12.0-15.0); Lymphocyte # 1.78 X10^3/ul (0.83-4.51); Lymphocyte % 19.4 % (19-41); Mean Corp Hgb Conc 33.9 g/dL (32-36); Mean Corpuscular Hgb 31.1 pg (27.0-32.0); Mean Corpuscular Volume 91.9 fL (81-99); Mean Platelet Vol. 10.7 fl (6.2-12.0); Monocyte# 0.78 X10^3/uL; Monocyte% 8.5 % (0-10); NRBC Flagged by Analyzer 0 % (0-5); Neutrophil # 6.33 X10^3/uL (2.7-7.7); Platelet Count 208 K/mm3 (150-450); RBC Distribution Width CV 12.4 % (11.6-14.6); RBC Distribution Width SD 41.4 fl (35.1-43.9); Red Blood Count 4.05 M/mm3 (4.2-5.4); White Blood Count 9.2 K/mm3 (4.4-11.0)
[2021-07-03 15:57] LABS: Glucose Challenge Gest 1H 50g 126 mg/dL (70-140)
== END ==
PROVIDERS: Visit Provider Obstetrics & Gynecology
DX: Z34.80 Encounter for supervision of other normal pregnancy, unspecified trimester (principal)
CPT/HCPCS: 36415; 82950; 85025

== ENCOUNTER → 2021-07-11 12:48 | Outpatient (CLI) | payer BC, SELFPAY ==
--- NOTE | 2021-07-11 12:52 | ECHOD_ITS ---
Reason For Study: PALPITATIONS Procedure This was a 2D Doppler, Color Flow transthoracic echocardiogram. Exam performed in department. Left Ventricle Normal LV size. Left ventricular systolic function is normal. The estimated ejection fraction is 55 %. Normal diastology for age. No regional wall motion abnormalities noted. Right Ventricle Normal RV size. Normal systolic function. Atria Normal left atrium. Normal right atrium. Lipomatous hypertrophy of the atrial septum. Mitral Valve Normal mitral valve. Tricuspid Valve Normal tricuspid valve. Aortic Valve Normal aortic valve. Trisinus/trileaflet aortic valve. Pulmonic Valve Normal pulmonic valve. Great Vessels Normal aortic root. The pulmonary artery is normal size. Normal inferior vena cava. Pericardium/Pleural No pericardial effusion. MMode/2D Measurements & Calculations LVIDd: 3.9 cm IVSd: 1.2 cm Ao root diam: 2.8 cm LVIDs: 2.7 cm LVPWd: 1.2 cm FS: 30.5 % LAV(MOD-bp): 36.4 ml LVAd ap4: 26.4 cm2 LVAd ap2: 24.5 cm2 LAV(MOD-bp) Indexed: 19.1 ml/m2 LVLd ap4: 7.7 cm LVLd ap2: 7.5 cm LAV(MOD-sp2): 31.7 ml EDV(MOD-sp4): 75.6 ml EDV(MOD-sp2): 67.6 ml LAV(MOD-sp4): 37.7 ml EDV(sp4-el): 76.5 ml EDV(sp2-el): 68.0 ml LVAs ap4: 14.7 cm2 LVAs ap2: 14.2 cm2 LVLs ap4: 5.8 cm LVLs ap2: 6.3 cm ESV(MOD-sp4): 32.4 ml ESV(MOD-sp2): 28.8 ml ESV(sp4-el): 31.5 ml ESV(sp2-el): 27.5 ml EF(MOD-sp4): 57.2 % EF(MOD-sp2): 57.4 % EF(sp4-el): 58.9 % SV(MOD-sp4): 43.2 ml SV(MOD-sp2): 38.8 ml SV(sp4-el): 45.0 ml LA dimension(2D): 3.5 cm LA A4 area: 15.2 cm2 RA A4 area: 8.5 cm2 Time Measurements MV dec time: 0.15 sec Doppler Measurements & Calculations MV E max zeeshan: 69.5 cm/sec Lat Peak E' Zeeshan: 13.9 cm/sec Med Peak E' Zeeshan: 9.8 cm/sec MV A max zeeshan: 60.2 cm/sec E/E' lat: 5.0 E/E' med: 7.1 MV E/A: 1.2 Ao V2 max: 141.4 cm/sec LV V1 max: 105.6 cm/sec TR max zeeshan: 97.6 cm/sec Ao max P.0 mmHg LV V1 max P.5 mmHg TR max P.8 mmHg ECHO/Echo Complete Interpretation Summary Normal LV size. Left ventricular systolic function is normal. The estimated ejection fraction is 55 %. Lipomatous hypertrophy of the atrial septum. Normal diastology for age. Ordering Physician: Lisa Rivas Referring Physician: ARISTIDES PCP; [facility] Performed By: Ruthie Alejandra, TRACEY, RVT
== END ==
LOC: CVS 12:51
PROVIDERS: Referring Provider Physician Assistant Medical; Visit Provider Physician Assistant Medical
DX: R00.0 Tachycardia, unspecified (principal); R42 Dizziness and giddiness
CPT/HCPCS: 93225; 93226; 93306

== ENCOUNTER 2021-09-05 10:40 | Inpatient (IN) | payer BC, SELFPAY ==
[2021-09-05] VITALS (18 sets, daily range): BP systolic 93–133; BP diastolic 49–84; PULSE 65–87; RESP 13–16; TEMP 36.1–36.9; O2SAT 95–98; BMI 35.8
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
[2021-09-05] MEDS: Betamethasone/Betamethasone 30 MG/5 ML Vial 12 MG IM (08:58)
--- NOTE | 2021-09-05 09:24 | US_ITS ---
STUDY: SECOND AND THIRD TRIMESTER OBSTETRICAL ULTRASOUND - LIMITED REASON FOR EXAM: Female, 31 years old bleeding in 35 weeks -- please check placenta, fluid, and position LMP: 12/29/2020. PRIOR ULTRASOUND: Comparison is made with prior study dated 06/19/2021. TECHNIQUE: Transabdominal and Transvaginal TECHNICAL QUALITY: Adequate. FINDINGS: There is a single intrauterine fetus. The fetus is in a cephalic presentation. There is demonstrated cardiac activity with a heart rate of 144 bpm. There is a normal amniotic fluid volume. The largest amniotic fluid pocket measures 4.6 cm. The amniotic fluid index (SIOBHAN) is 12.2 cm. The placenta is posterior in location and is not low lying. The tip of the placenta is a 3.2 cm from the internal os. There are Grade 2 placental changes. The cervix measures 5.1 cm in length. Small amount of fluid is seen in the lower aspect of the cervix. BIOMETRY: Age by LMP: 35 weeks, 5 days. RAIZA by LMP: 10/05/2021. US/OB Limited (No Biometrics) IMPRESSION: Small amount of fluid is seen in the inferior aspect of the cervix. The placenta is at 3.2 cm from the internal os. Electronically Signed: Al Ortez MD at 10:38 EST ,
[2021-09-05] MEDS: Lactated Ringers 1,000 ML 999 ML IV (09:35)
[2021-09-05 09:53] LABS: Hematocrit 37.2 % (37-47); Hemoglobin 13.2 g/dL (12.0-15.0); Mean Corp Hgb Conc 35.5 g/dL (32-36); Mean Corpuscular Volume 90.3 fL (81-99); Platelet Count 167 K/mm3 (150-450); Red Blood Count 4.12 M/mm3 (4.2-5.4); White Blood Count 7.4 K/mm3 (4.4-11.0)
[2021-09-05 10:02] LABS: Prothrombin Time (Protime)PT. 12.3 SECONDS (11.7-14.9)
[2021-09-05 10:03] LABS: Fibrinogen 527 mg/dl (203-444); Partial Thromboplast Time 33.1 Seconds (24.1-36.2)
[2021-09-05] MEDS: Sodium Citrate/Citric Acid 30 ML UDC PO (11:07)
[2021-09-05] MEDS: Cefazolin 2 GM in 0.9% Normal Saline 100 ML IV (11:15)
--- NOTE | 2021-09-05 11:37 | PLAC_PTH ---
PATIENT: QUOC STUART LOC: WP U#:[id number] AGE/SX: 31/F ROOM: WP010 RE09/05/[address]: Dr. Silvana Barrios DO : 1990 BED: 1 DIS: 09/07/2021 SPEC #: [id number] RECD: 09/05/21 15:14 STATUS: VICTORINO LILIAM #: [id number] MOUNA: 09/05/21 11:[address]: Silvana Barrios DEPT: SURGICAL PATHOLOGY RECD BY: Beba Augustine ENTERED: 09/06/21 09:45 SP TYPE: PLACENTA OTHR DR: No Primary Care Phys Tissues: Placenta, NOS Procedures: Surgery Specimen Level V HEADER OPERATION: Repeat section PRE-OP DIAGNOSIS: Repeat section TISSUE SUBMITTED: Placenta MICROSCOPIC DIAGNOSIS Bravo placenta (619 gm): Umbilical cord ? trivascular with no inflammation. Placental membranes ? no pathologic change. Placental disc ? Chandu-Coy change, intervillous congestion and minimal chronic decidual inflammation. AM:salud 09/10/2021 MICROSCOPIC DESCRIPTION Slides are reviewed. GROSS DESCRIPTION SPECIMEN: PLACENTA / CLINICAL INFORMATION: A. Weight: 2.885 kg B. Gestational Age: 35 weeks C. Sex: Male PLACENTAL WEIGHT (POST FIXATION): 619 gm PLACENTAL DIMENSIONS: 18 x 17 x 3.5 cm PLACENTAL SHAPE: Usual ovoid PLACENTAL WEIGHT FOR GESTATIONAL AGE: Over 99th percentile MEMBRANES - Present A. Insertion: Marginal B. Site of rupture from edge: 4 cm from edge of placental disc C. Color of membrane: Evangelista-gayle D. Abnormalities: None UMBILICAL CORD - Present A. Color: Evangelista-gayle B. Insertion: Central C. Length: 15 cm D. Diameter: Up to 1.5 cm E. Number of vessels: Three F. Abnormalities: None Also present in the container is a detached segment of umbilical cord which measures up to 26 cm in length. PLACENTAL DISC - Present A. Color of surface: Evangelista-gayle B. surface abnormalities: None C. Maternal cotyledons: Intact with minimal tears D. Attached retro placental clot: No clot E. Cut surface: Dark red and spongy F. Lesions: None G. Separate clot: Absent SECTIONS SUBMITTED: 1. Membrane roll 2. Cord, maternal end 3. Cord, end 4. Placental disc, and maternal surfaces 5. Placental disc, and maternal surfaces 6. Placental disc, and maternal surfaces SJ:salud 09/09/2021 TC:3 CPT: 60641
[2021-09-05] MEDS: Oxytocin 30 units/NS 500 ml 30 UNITS/500 ML IV.SOLN 167 UNITS IV (12:30)
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
--- NOTE | 2021-09-05 12:46 | PCM.DC ---
Discharge Instructions Diet Discharge Diet: No restrictions Activity Discharge Activity: May Not Drive (for 2 weeks or while taking narcotic pain medications.), May Shower and May Take a Tub Bath (in 7 days.) May resume sexual activity in: 4-6 weeks Weight Bearing Status: Full weight bearing Lifting Restrictions: 20 pounds Dressing / Incision Call your doctor if your incision/area has: Continuous Slow Oozing, Sudden Increased Bleeding, Increased Pain/ Swelling, Increased Redness and Foul Smelling Discharge Call your doctor if you observe: Fever of 101 or Higher and Using more than 1 pad per hour Suture Line Care: Avoid Pulling/Pushing and Avoid Pinching/Bending Cleanse incision/area with: Soap & Water and Keep Dressing Clean & Dry Follow Up Care Please Follow Up With: Silvana Barrios DO When: Call [phone] to make an appointment for an incision check in 1-2 weeks. Test Results: Test results from this visit will be discussed in further detail at your follow-up appointment, if applicable. Discharge Plan Admission Admit Date/Time: 09/05/21 10:40 Primary Reason for Your Visit: section Attending Provider: Silvana Barrios Primary Care Provider: Lilly Physician,Teena Primary Discharge Orders/Prescriptions Prescriptions: New ibuprofen 800 mg tablet 800 mg PO Q8H PRN (Reason: pain) 7 Days Qty: 30 RF: 0 oxycodone-acetaminophen [Percocet] 5-325 mg tablet 1 tab PO Q4H PRN (Reason: pain) 7 Days Qty: 30 RF: 0 Continued prenat.vits,latasha,[id number] Tablet 1 tab PO DAILY RF: 0 loratadine [Claritin] 10 mg tablet 10 mg PO DAILY RF: 0 biotin 1 mg capsule 1 mg PO DAILY RF: 0 sertraline [Zoloft] 100 mg tablet 100 mg PO DAILY RF: 0 Referrals / Follow Up: Care Physician,No Primary [Primary Care Provider] -
[2021-09-05] MEDS: Acetaminophen 500 MG Tablet 1000 MG PO ×2 (14:10→20:55)
[2021-09-05] MEDS: Ketorolac 30 MG/ML Syringe IV ×2 (14:10→20:55)
[2021-09-05 15:14] LABS: Pathology Specimen OB SEE PATHOLOGY REPORT
[2021-09-05] MEDS: Lactated Ringers 1,000 ML 100 ML IV (15:36)
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
[2021-09-05] MEDS: Sertraline 100 MG Tablet PO (20:55)
[2021-09-06] MEDS: 0.9% Saline Lock 10 ML Syringe IV ×2 (03:00→08:54)
[2021-09-06] MEDS: Acetaminophen 500 MG Tablet 1000 MG PO ×4 (03:00→22:21)
[2021-09-06] MEDS: Ketorolac 30 MG/ML Syringe IV ×2 (03:00→08:54)
[2021-09-06 03:04] VITALS: BP 109/62; PULSE 82; RESP 16; TEMP 36.7; O2SAT 97
[2021-09-06 05:29] LABS: Hematocrit 29.3 % (37-47); Hemoglobin 10.4 g/dL (12.0-15.0); Mean Corp Hgb Conc 35.5 g/dL (32-36); Mean Corpuscular Hgb 32.5 pg (27.0-32.0); Mean Corpuscular Volume 91.6 fL (81-99); Mean Platelet Vol. 12.2 fl (6.2-12.0); Platelet Count 173 K/mm3 (150-450); RBC Distribution Width CV 12.8 % (11.6-14.6); RBC Distribution Width SD 42.1 fl (35.1-43.9); White Blood Count 14.9 K/mm3 (4.4-11.0)
[2021-09-06 08:33] VITALS: BP 108/57; PULSE 82; RESP 18; TEMP 36.6; O2SAT 94
[2021-09-06 12:40] VITALS: BP 95/54; PULSE 94; RESP 18; TEMP 36.5; O2SAT 95
[2021-09-06] MEDS: Senna/Docusate Sodium 1 Tablet PO (12:42)
[2021-09-06] MEDS: Ibuprofen 600 MG Tablet PO ×2 (16:10→22:21)
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
[2021-09-06 17:35] VITALS: BP 109/62; PULSE 88; RESP 16; TEMP 36.1; O2SAT 95
[2021-09-06 20:30] VITALS: BP 106/57; PULSE 85; RESP 16; TEMP 36.7; O2SAT 95
[2021-09-06] MEDS: Sertraline 100 MG Tablet PO (21:20)
[2021-09-07 04:00] VITALS: BP 111/49; PULSE 82; RESP 16; TEMP 36.4; O2SAT 95
[2021-09-07] MEDS: Acetaminophen 500 MG Tablet 1000 MG PO ×2 (05:12→10:50)
[2021-09-07] MEDS: Ibuprofen 600 MG Tablet PO ×2 (05:12→10:50)
--- NOTE | 2021-09-07 08:46 | PCM.PN.OB ---
Subjective Subjective Patient doing well without complaints. Tolerating PO. Ambulating and voiding without difficulty. feeding well. Denies chest pain, shortness of breath, calf pain/swelling, fevers, chills, lightheadedness. Objective Data Objective Data Vital Signs: Vital Signs Temp Pulse Resp BP Pulse Ox 97.5 F L 82 16 111/49 L 95 09/07/21 04:00 09/07/21 04:00 09/07/21 04:00 09/07/21 04:00 09/07/21 04:00 Oxygen Delivery Method Room Air Weight: 202 lb 2.622 oz Body Mass Index (BMI) 35.8 Intake & Output: Intake and Output for Last 24 Hours 09/05/21 09/06/21 09/07/21 23:59 23:59 23:59 Intake Total 2391.67 / 2391.67 Output Total 1050 / 1050 225 / 225 Balance 1341.67 / 1341.67 -225 / -225 Lab / Micro Data Result Diagrams: 09/06/21 05:20 Micro: Microbiology 09/05/21 09:42 Nasal Secretion SARS-CoV-2 Antigen (Rapid) - Final ROS Constitutional Constitutional: Reports systems reviewed and no addt'l complaints, except as documented Cardiovascular Cardiovascular: Reports systems reviewed and no addt'l complaints, except as documented Respiratory/Chest Respiratory/Chest: Reports systems reviewed and no addt'l complaints, except as documented Gastrointestinal Gastrointestinal: Reports systems reviewed and no addt'l complaints, except as documented Physical Exam Const alert, oriented x3 and no apparent distress HEENT Head and Scalp: atraumatic Resp normal respiratory effort GI soft to palpation and non-tender Inspection: incision intact, healing well and drainage (none) Bimanual Exam - Vag & Uterus: uterus non-tender Uterus Palpation: uterus fundus firm (below Umbilicus) Assessment & Plan (1) depression: COMMENT: zoloft, counseling encouraged. Stable PLAN: s/p cs routine care [facility] home
[2021-09-07 09:15] VITALS: BP 102/61; PULSE 66; RESP 16; TEMP 36.4; O2SAT 97
[2021-09-07] MEDS: Senna/Docusate Sodium 1 Tablet PO (10:50)
== END 2021-09-07 11:40 | disposition home or self-care (01) | DRG 787 ==
LOC: WPOUT 10:44 → WP 11:42
PROVIDERS: Admitting Provider Obstetrics & Gynecology; Referring Provider Obstetrics & Gynecology; Visit Provider Obstetrics & Gynecology
DX: O34.219 Maternal care for unspecified type scar from previous cesarean delivery (principal); O44.23 Partial placenta previa NOS or without hemorrhage, third trimester; K21.9 Gastro-esophageal reflux disease without esophagitis; F41.9 Anxiety disorder, unspecified; Z3A.35 35 weeks gestation of pregnancy; O76 Abnormality in fetal heart rate and rhythm complicating labor and delivery; Z37.0 Single live birth; O99.62 Diseases of the digestive system complicating childbirth; O99.344 Other mental disorders complicating childbirth; Z79.899 Other long term (current) drug therapy; O69.81X0 Labor and delivery complicated by cord around neck, without compression, not applicable or unspecified
CPT/HCPCS: 59025; 59050; 76815; 76817; 85027; 85384; 85610; 85730; 86850; 86900; 86901; 87426; 88307; 99218; J7120; A4216; G0378; J0702; J2405

== ENCOUNTER → 2022-10-23 | Outpatient (CLI) | payer SELFPAY ==
[2022-10-30 17:01] LABS: HPV APTIMA, High Risk Negative (Negative)
== END | disposition home or self-care (01) ==
LOC: LABSPEC 15:59
PROVIDERS: Referring Provider Obstetrics & Gynecology; Visit Provider Obstetrics & Gynecology
DX: Z12.4 Encounter for screening for malignant neoplasm of cervix (principal)
CPT/HCPCS: 87624; 88175; G0145

== ENCOUNTER → 2022-10-28 | Outpatient (CLI) | payer SELFPAY ==
--- NOTE | 2022-10-28 16:02 | US_ITS ---
STUDY: ULTRASOUND OF THE FEMALE PELVIS - COMPLETE REASON FOR EXAM: Female, 32 years old. Abnormal bleeding LMP: 10/13/2022 TECHNIQUE: Transabdominal and Transvaginal TECHNICAL QUALITY: Adequate. COMPARISON: None. FINDINGS: The uterus is anteverted and is in a midline position. The uterus measures 8.5 x 4.8 x 4.0 cm. Normal uterine cervix. The endometrium measures 5 mm in thickness, and is hyperechoic. There is no demonstrated endometrial mass. There is no demonstrated myometrial mass, the myometrium is heterogeneous.. I.U.D. - The patient does not have an I.U.D. The right ovary is visualized. The right ovary measures 5.3 x 5.0 x 3.3 cm. There is a simple 4.3 x 3.8 x 3.0 cm cyst. Since it is a simple cyst and given the patient''s age, no specific follow-up is needed. . There is normal arterial and normal venous vascularity. The left ovary is visualized. The left ovary measures 3.5 x 2.3 x 1.4 cm. There is no left ovarian cyst or ovarian mass. There is no visualized left adnexal mass or complex lesion. There is normal arterial and normal venous vascularity. There is no fluid in the cul-de-sac. The pre void volume of the bladder was 261.37 ml. The post void volume of the bladder was 0 ml. US/Pelvic w/ Transvaginal IMPRESSION: Simple right ovarian cyst, no specific follow-up needed. Uterus is unremarkable aside from nonspecific heterogeneity of the myometrium Sonographically normal left ovary, no free fluid Electronically Signed: Terry Rubio MD at 8:55 EDT ,
== END | disposition home or self-care (01) ==
PROVIDERS: Referring Provider Obstetrics & Gynecology; Visit Provider Obstetrics & Gynecology
DX: N93.9 Abnormal uterine and vaginal bleeding, unspecified (principal)
CPT/HCPCS: 76830; 76856

== ENCOUNTER → 2023-09-03 | Outpatient (CLI) | payer OTHER, SELFPAY ==
--- NOTE | 2023-09-03 12:33 | US_ITS ---
STUDY: ULTRASOUND OF THE FEMALE PELVIS - COMPLETE REASON FOR EXAM: Female, 33 years old. Pelvic pain, possible adenomyosis LMP: August 19, 2023. TECHNIQUE: Transabdominal and Transvaginal TECHNICAL QUALITY: Adequate. COMPARISON: Comparison is made with prior sonogram dated October 28, 2022. FINDINGS: The uterus is anteverted and is tilted to the right side of the pelvis. The uterus measures 7.3 cm x 5.1 sono by 4 cm. Normal uterine cervix. The endometrium measures 2 mm in thickness, and is hyperechoic. There is no demonstrated endometrial mass. There is no demonstrated myometrial mass. I.U.D. - The patient does not have an I.U.D. The right ovary is visualized. The right ovary measures 2.8 cm x 2.8 cm x 2.2 cm. There is no right ovarian cyst or ovarian mass. There is no visualized right adnexal mass or complex lesion. There is normal arterial and normal venous vascularity. The left ovary is visualized. The left ovary measures 3.2 cm x 2.6 cm x 3.3 cm. There is no left ovarian cyst or ovarian mass. There is no visualized left adnexal mass or complex lesion. There is normal arterial and normal venous vascularity. There is minimal fluid in the cul-de-sac. The pre void volume of the bladder was 305 ml. US/Pelvic w/ Transvaginal IMPRESSION: Normal female pelvis. Minimal fluid in the pelvis. Electronically Signed: Al Ortez MD at 15:33 EST ,
== END | disposition home or self-care (01) ==
PROVIDERS: Referring Provider Obstetrics & Gynecology; Visit Provider Obstetrics & Gynecology
DX: O26.899 Other specified pregnancy related conditions, unspecified trimester (principal); O99.892 Other specified diseases and conditions complicating childbirth; R10.2 Pelvic and perineal pain; Z3A.00 Weeks of gestation of pregnancy not specified
CPT/HCPCS: 76830; 76856; 93976

== ENCOUNTER → 2023-10-26 | Outpatient (CLI) | payer OTHER, SELFPAY ==
[2023-10-26 12:46] LABS: Hematocrit 38.9 % (37-47); Hemoglobin 13.7 g/dL (12.0-15.0); Mean Corp Hgb Conc 35.2 g/dL (32-36); Mean Platelet Vol. 10.9 fl (6.2-12.0); Platelet Count 241 K/mm3 (150-450); RBC Distribution Width CV 11.7 % (11.6-14.6); RBC Distribution Width SD 37.4 fl (35.1-43.9); Red Blood Count 4.42 M/mm3 (4.2-5.4); White Blood Count 6.1 K/mm3 (4.4-11.0)
[2023-10-26 13:19] LABS: Magnesium 2.2 mg/dL (1.6-2.6)
== END | disposition home or self-care (01) ==
LOC: LAB 11:53
PROVIDERS: Anesthesiology; Referring Provider Obstetrics & Gynecology; Visit Provider Obstetrics & Gynecology
DX: Z01.818 Encounter for other preprocedural examination (principal)
CPT/HCPCS: 36415; 83735; 85027; 86850; 86900; 86901

== ENCOUNTER 2023-11-03 07:44 | Day surgery (SDC) | payer OTHER, SELFPAY ==
[2023-11-03] VITALS (15 sets, daily range): BP systolic 100–125; BP diastolic 60–82; PULSE 80–99; RESP 8–17; TEMP 36.1–36.6; O2SAT 94–100; BMI 28.5
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
[2023-11-03 08:19] LABS: Internal QC Validated? YES +Cl - CLEAR BKGD; Pregnancy, Urine Negative Negative
[2023-11-03] MEDS: Magnesium 1 GM over 15 mins IV (08:34)
[2023-11-03] MEDS: Lactated Ringers 1,000 ML 40 ML IV ×3 (08:34→16:42)
[2023-11-03] MEDS: Celecoxib 200 MG Capsule 400 MG PO (08:34)
[2023-11-03] MEDS: Scopolamine 1mg/72hr Patch 1 PATCH TD (08:35)
[2023-11-03] MEDS: Acetaminophen 500 MG Tablet 1000 MG PO (08:35)
[2023-11-03] MEDS: Gabapentin 600 MG Tablet PO (08:35)
[2023-11-03] MEDS: dexAMETHasone 4 MG/ML Vial 8 MG IV (08:36)
[2023-11-03 08:46] LABS: Bedside Glucose 114 mg/dL (74-106)
--- NOTE | 2023-11-03 10:00 | DCINST_ITS ---
Discharge Instructions Diet Discharge Diet: No restrictions Activity May resume sexual activity in: 6 weeks Weight Bearing Status: Full weight bearing Dressing / Incision Call your doctor if your incision/area has: Continuous Slow Oozing, Sudden Increased Bleeding, Increased Pain/ Swelling, Increased Redness and Foul Smelling Discharge Call your doctor if you observe: Fever of 101 or Higher, Using more than 1 pad per hour, Shortness of breath, Chest pain and Uncontrolled pain Suture Line Care: Avoid Pulling/Pushing and Avoid Pinching/Bending Remove Dressing in: 1 week (if present) Cleanse incision/area with: Soap & Water and Keep Dressing Clean & Dry Follow Up Care Please Follow Up With: Silvana Barrios DO When: Call to make an appointment with your doctor for a postop visit in 2 and 6 weeks Test Results: Test results from this visit will be discussed in further detail at your follow- up appointment, if applicable. Discharge Plan Admission Primary Reason for Your Visit: hysterectomy Attending Provider: Silvana Barrios Primary Care Provider: Care Physician,Teena Primary Discharge Orders/Prescriptions Prescriptions: New ibuprofen 800 mg tablet 800 mg PO Q8H PRN (Reason: pain) Qty: 30 0RF docusate sodium [Colace] 100 mg capsule 100 mg PO BID 10 Days Qty: 20 0RF hydrocodone-acetaminophen 5-325 mg tablet 1 tab PO Q4H PRN (Reason: pain) 7 Days Qty: 20 0RF Continued fexofenadine-pseudoephedrine [Haley-D 24 Hour] 180-240 mg tablet extended release 24 hr 1 tab PO QAM PRN (Reason: allergy symptoms) levocetirizine [Allergy Relief (levocetirizin)] 5 mg tablet 5 mg PO DAILY multivit with min-folic acid [One Daily Womens 50 Plus] 0.4 mg tablet 1 tab PO DAILY sertraline [Zoloft] 100 mg tablet 150 mg PO DAILY Qty: 135 3RF Discontinued levonorgestrel-ethinyl estrad [Aviane] 0.1-20 mg-mcg tablet 1 tab PO QDAY Qty: 28 12RF Referrals / Follow Up: Care Physician,No Primary [Primary Care Provider] - Disposition Disposition (needs filled in before D/C Order can be placed): Home, Self Care
--- NOTE | 2023-11-03 10:15 | HYST_PTH ---
PATIENT: QUOC STUART LOC: [facility] – [place] U#:[id number] AGE/SX: 33/F ROOM: RE11/03/[address]: Dr. Silvana Barrios DO : 1990 BED: DIS: 11/03/2023 SPEC #: [id number] RECD: 11/03/23 12:49 STATUS: VICTORINO RICKETTS #: [id number] MOUNA: 11/03/23 10:[address]: Silvana Barrios DEPT: SURGICAL PATHOLOGY RECD BY: Yolanda Gifford ENTERED: 11/03/23 13:51 SP TYPE: HYSTERECT OTHR DR: No Primary Care Phys Tissues: Uterus, NOS Procedures: Surgery Specimen Level V HEADER OPERATION: ERAS, lap robotic hysterectomy, bilateral salpingectomy PRE-OP DIAGNOSIS: Pelvic pain, abnormal uterine bleeding TISSUE SUBMITTED: Uterus, cervix, bilateral fallopian tubes MICROSCOPIC DIAGNOSIS Uterus, cervix, bilateral fallopian tubes, hysterectomy, bilateral salpingectomy: Cervix - chronic inflammation. Endometrium - weakly proliferative endometrium. Myometrium - no pathologic diagnosis. Bilateral fallopian tubes - no pathologic diagnosis. DANAY/ 11/04/23 MICROSCOPIC DESCRIPTION Slides are reviewed. GROSS DESCRIPTION Received in fixative is one container labeled with the patient's name and designated uterus, cervix, bilateral fallopian tubes. The specimen consists of a hysterectomy specimen consisting of the uterus with cervix and attached bilateral fallopian tubes. Uterus with cervix weighs 81 gm and measures 9.0 x 6.0 x 4.0 cm. The serosal surface is mancilla glistening. The ectocervical mucosa is mancilla glistening and unremarkable. The external os is circular in contour. The endocervical canal measures 3.0 cm in length and the endocervical mucosa is mancilla glistening and unremarkable. The triangular endometrial cavity measures 4.0 cm in length and up to 2.5 cm in width. The endometrium is mancilla, glistening without any mass lesion and measures 0.1 cm in thickness. Section of the uterine wall does not reveal any mass lesion and measures 2.0cm thickness. Right fallopian tube measures 6.5cm and 0.5cm in diameter. Fimbrial end is identified. Sections reveal unremarkable cut surfaces. Left fallopian tube is similar appearance to right and measures 6.0cm in length and 0.5cm in diameter. Tableau Developer sections are submitted in eight cassettes as follows: 1 - anterior cervix, 2 - posterior cervix, 3 & 4 - anterior uterine wall, 5 & 6 - posterior uterine wall, 7- right fallopian tube, 8- left fallopian tube SJ: 11/03/23 TC:3 CPT: 30616
[2023-11-03] MEDS: Cefazolin 2 GM in 0.9% Normal Saline (100mL Bag) 100 ML IV (10:45)
[2023-11-03] MEDS: Bupivacaine 0.25% 30 ML Vial (12:00)
--- NOTE | 2023-11-03 12:33 | OP.PCM_ITS ---
Problems Associated Problem List Diagnoses (1) Pelvic pain: (2) Abnormal uterine bleeding: Report of Operation Date of Procedure: 11/03/23 Pre-Operative Diagnosis: menorrhagia, pelvic pain Post-Operative Diagnosis: menorrhagia, pelvic pain Surgery/Procedure Performed:: total robotic hysterectom, bilateral salpingectomy, cystoscopy Description of Surgical Findings:: Findings: 9 size uterus, normal appearing ovaries and tubes. On exploration of the abdominal cavity the uterus, adnexa, bowel, and liver were found to be normal. Cystoscopy showed no evidence of leaking at approximately 250 cc of normal saline, positive ureteral orifices and jet flow are seen and no suture material was appreciated in the bladder. Surgeon: Silvana Barrios clinical trials data coordinator: Erick Thomas Type of Anesthesia: General Estimated Blood Loss (mL): 30cc Description of Procedure: Reason for surgery: This is a 33-year-old G3, P3 who presented to my office with history of on going pelvic pain and abnormal menses. She desires to be completed with child bearing and failed conservative therapy. The planned procedure is for a robotic hysterectomy the risks benefits and alternatives were discussed with the patient the patient had a clear understanding of the procedure and a consent form was signed. Procedure: The patient was placed in the dorsal low lithotomy position and prepped and draped in the normal sterile fashion both abdominally and in the perineum. Her legs were placed in stirrups a Burnett catheter was inserted into the urethra without difficulty. A weighted speculum was placed in the vagina and a single- tooth tenaculum was used to grasp the anterior lip of the cervix. An advincula uterine manipulator was inserted through the cervix without complication. It was then tied into place at the 2 and 10:00 locations on the cervix. Gloves were changed and attention was turned towards the abdomen. Approximately 23 cm above the pubic symphysis in the midline, and after Marcaine injection, a [8] mm incision was made. An 8 mm trocar was inserted through the laparoscope, then inserted into the abdomen under direct visualization using the laparoscope. Good abdominal placement was noted and no complications were appreciated. An air se al device was utilized to create pneumoperitoneum. At 12 cm lateral to the midline on the left and right sides 8 mm accessory ports were placed. Next a left upper quadrant 8 mm senior assistant manager port site was placed. The patient was placed in steep Trendelenburg position. The robot was docked. The hysterectomy was initiated first by taking down the round ligament on each side using the vessel sealer device. [The peritoneum between the round ligament and the IP ligament was opened using electrocautery and extended the length of the IP ligament. The IP ligament was then taken down using the vessel sealer device. These areas were freed without complication] the broad ligament was then and taken down using the vessel sealer device. Next the bladder flap was taken down without complication. This was done using monopolar cautery to the level of the cervical vaginal junction. After the bladder flap was created, uterine vessels were then isolated and cauterized using the vessel se aler device and EndoShears. At this point the uterine vessels were taken down further starting from the ascending branch, dissecting along the edges of the cervix to the level of the cervical vaginal junction with hemostasis appreciated. The cervical vaginal junction was then using monopolar cautery in a circumferential pattern across the superior aspect of the cervix. The specimen was delivered through the vagina and sent to pathology. The remaining vaginal cuff was then closed using a V lock suture. This was performed in a running technique. Excellent hemostasis was obtained and good closure was noted. Irrigation was then performed. All operative sites were noted to be hemostatic. A cystoscopy was performed with a 70 degree cystoscope through the urethra into the bladder without complication. The bladder was instilled with approximately 250 cc of normal saline. Intraoperative images were made. Ureteral orifices and jets were identified. No suture material was appreciated in the bladder. The bladder was then drained and cystoscope was removed. The abdominal cavity was again examined using the laparoscope after the robot was undocked. All operative sites were noted to be hemostatic. The trochars were removed under direct visualization without complication and pneumoperitoneum was reduced. At this point the skin was then closed using 4-0 Monocryl subcuticular stitch and sealed with surgical glue. The patient tolerated the procedure well sponge lap and needle counts were correct x2 the patient was taken to the recovery room in stable condition. Grafts/Implants Used: none Admit VTE Documentation VTE Present on Admission: Yes VTE Mechan Device Prophylaxis: SCD's VTE Pharm Prophylaxis ordered?: No Multi Select Codes Urinary/Genital Urinary/Genital CPT Codes: 95337 Cystoscopy and 01689 TLH+BS/O <250gr uterus
[2023-11-03] MEDS: Lactated Ringers @ 70 MLS/HR 70 ML IV (12:55)
[2023-11-03] MEDS: HYDROcodone Bitartrate/Apap 5/325 Tablet PO ×2 (16:34→17:58)
--- NOTE | 2023-11-03 20:06 | SUR.PHASEII ---
1837; SCOP PATCH REMOVED
== END 2023-11-03 20:08 | disposition home or self-care (01) ==
LOC: SDC 07:45 → AC 07:47
PROVIDERS: Referring Provider Obstetrics & Gynecology; Visit Provider Obstetrics & Gynecology
PROC: 0UT94ZZ Resection of Uterus, Percutaneous Endoscopic Approach (ICD-10-PCS; CPT 58571; principal; 2023-11-03 09:55)
DX: N72 Inflammatory disease of cervix uteri (principal); K21.9 Gastro-esophageal reflux disease without esophagitis; Z79.899 Other long term (current) drug therapy
CPT/HCPCS: 58571; S2900; 00840; 81025; 82962; 88307; J7120; J2405; J3475

== ENCOUNTER → 2023-12-18 | Outpatient (CLI) | payer OTHER, SELFPAY ==
--- NOTE | 2023-12-18 13:00 | BI_ITS ---
MAMMOGRAPHY - BILATERAL DIAGNOSTIC REASON FOR EXAM: Female, 33 years old. left breast pain PERTINENT HISTORY: Non-contributory. TECHNIQUE: Digital examination. Mediolateral oblique (MLO) and craniocaudad (CC) views of both breasts were obtained. CAD: CAD was performed on this study. COMPARISON: None. FINDINGS: Breast Composition: The breasts are heterogeneously dense, which may obscure small masses. There are no dominant masses or suspicious calcifications. No other significant abnormalities are identified. BI/DIAG MAMM W/CAD, BILAT IMPRESSION: Stable bilateral diagnostic mammogram. ASSESSMENT CATEGORY: BIRADS Category 1: Negative. A letter regarding these results will be sent to the patient by the facility within 30 days. FOLLOW UP RECOMMENDATION: Yearly follow up mammogram recommended. (A) Approximately 10% of breast cancers are not detected by mammography. A normal mammogram should not delay biopsy of a clinically suspicious abnormality. Electronically Signed: Anshul Jean Baptiste MD at 13:53 EDT ,
== END | disposition home or self-care (01) ==
LOC: OPBI 12:59
PROVIDERS: Referring Provider Obstetrics & Gynecology; Visit Provider Obstetrics & Gynecology
DX: N64.4 Mastodynia (principal)
CPT/HCPCS: 77062; 77066; G0279

== ENCOUNTER → 2024-06-15 | Outpatient (CLI) | payer OTHER, SELFPAY ==
[2024-06-15 15:44] LABS: Erythrocyte Sedimentation Rate < 1 mm/hr (0-30)
[2024-06-15 15:46] LABS: Absolute Lymphocyte Count 2.63 X10^3/uL (0.83-4.51); Absolute Neutrophil Count 3.8 X10^3/uL (2.0-7.7); Basophil# 0.06 X10^3/uL; Basophil% 0.8 % (0-1); Eosinophil# 0.46 X10^3/uL; Hematocrit 41.8 % (37-47); Hemoglobin 14.4 g/dL (12.0-15.0); Lymphocyte # 2.63 X10^3/ul (0.83-4.51); Lymphocyte % 34.2 % (19-41); Mean Corp Hgb Conc 34.4 g/dL (32-36); Mean Corpuscular Hgb 30.4 pg (27.0-32.0); Mean Corpuscular Volume 88.2 fL (81-99); Mean Platelet Vol. 10.8 fl (6.2-12.0); Monocyte# 0.74 X10^3/uL; Monocyte% 9.6 % (0-10); NRBC Flagged by Analyzer 0 % (0-5); Neutrophil % 49.3 % (47-70); Platelet Count 249 K/mm3 (150-450); RBC Distribution Width CV 11.4 % (11.6-14.6); RBC Distribution Width SD 36.2 fl (35.1-43.9); Red Blood Count 4.74 M/mm3 (4.2-5.4); White Blood Count 7.7 K/mm3 (4.4-11.0)
[2024-06-15 16:03] LABS: ALB/GLOB Ratio 1.4 RATIO (0.9-2.4); AST(SGOT) 17 U/L (15-37); Alanine Aminotransfer ALT/SGPT 31 U/L (13-56); Albumin, Serum 4.2 g/dL (3.2-5.0); Alkaline Phosphatase 62 U/L (45-117); Anion Gap 5 (5-15); BUN 13 mg/dL (7-18); BUN/Creat Ratio 16.2 RATIO (10-20); CRP < 2.90 mg/L (0.0-3.0); Calcium,Total 9.1 mg/dL (8.5-10.1); Chloride 108 mmol/L (98-107); EST Glomerular Filtration Rate 88 mL/min (>60); Est Glom Filt Rate - Afr Amer 107 mL/min (>60); Globulin 2.9 g/dL (2.2-4.2); Glucose 95 mg/dL (74-106); Potassium 4.2 mmol/L (3.5-5.1); Protein, Total 7.1 g/dL (6.4-8.2); Sodium Level 138 mmol/L (136-145)
[2024-06-20 15:07] LABS: ACCA 10 units (0-90); ALCA 6 units (0-60); AMCA 25 units (0-100); Endomysial Antibody IgA Negative (Negative); Immunoglobulin A 84 mg/dL (87-352); gASCA 8 units (0-50); t-Transglutaminase IgA <2 U/mL (0-3)
== END | disposition home or self-care (01) ==
LOC: LAB 14:21
PROVIDERS: PCP Nurse Practitioner Family; Referring Provider Student in an Organized Health Care Education/Training Program; Visit Provider Student in an Organized Health Care Education/Training Program
DX: R19.8 Other specified symptoms and signs involving the digestive system and abdomen (principal)
CPT/HCPCS: 36415; 80053; 82784; 83516; 85025; 85652; 86036; 86140; 86255; 86671

== ENCOUNTER → 2024-11-18 | Outpatient (CLI) | payer OTHER, SELFPAY ==
[2024-11-18 15:25] LABS: Cholesterol 194 mg/dL (<=200); High Density Lipoprotein 41 mg/dL; Low Density Lipoprotein Calc. 113 mg/dL; Triglycerides 198 mg/dL; Very Low Density Lipoprotein 40 mg/dL (5-40); cholesterol:hdl ratio screen 4.71
[2024-11-18 15:51] LABS: Hemoglobin A1c 4.9 % (<=5.6)
== END | disposition home or self-care (01) ==
LOC: LAB 13:41
PROVIDERS: PCP Nurse Practitioner Family; Referring Provider Nurse Practitioner Psychiatric/Mental Health; Visit Provider Nurse Practitioner Psychiatric/Mental Health
DX: F33.1 Major depressive disorder, recurrent, moderate (principal)
CPT/HCPCS: 36415; 80061; 83036